=== PATIENT | male | born 1955 | race African-American/Black ===

== ENCOUNTER → 2016-11-14 | Outpatient (CLI) | payer MEDICARE, MEDICAID | LOC: OD 10:02 | PROVIDERS: ATTEND Radiology Radiation Oncology | DX: C61 Malignant neoplasm of prostate (principal); R97.20 Elevated prostate specific antigen [PSA] | CPT/HCPCS: 36415; 84153 ==

== ENCOUNTER → 2016-11-25 | Outpatient (CLI) | payer MEDICARE, MEDICAID ==
--- NOTE | 2016-11-25 14:25 | RADIOLOGY REPORT (SQ) ---
EXAM DESCRIPTION: NM WHOLE BODY BONE SCAN COMPLETED DATE/TIME: 11/25/2016 2:06 pm REASON FOR STUDY: PROSTATE CA (C61) RISING PSA (R97.21) C61 MALIGNANT NEOPLASM OF PROSTATE R97.21 RISING PSA FOL TREATMENT FOR MALIGNANT NEOPLASM OF [place] COMPARISON: No available imaging studies for comparison. RADIONUCLIDE AND DOSE: 22 millicuries Tc99m MDP. The route of agent administration: Intravenous. ADDITIONAL DRUGS AND DOSES: None. TECHNIQUE: Routine delayed images at 3 hours post radionuclide injection acquired of the bony skelet on including anterior and posterior whole-body projections and additional focused images as needed. LIMITATIONS: None. FINDINGS: BONES: There is mild increased uptake in the left 6th anterior rib, in the region of the f rontal sinus, the right 9th rib posteriorly in left 8th rib posteriorly KIDNEYS: Symmetric excretion without obstruction. OTHER: Incidental note is made of uptake in some axillary nodes on the right, the on the was injected . This probably merely relates to extravasation of a small amount of tracer at the time of injection . IMPRESSION: There are some subtle areas of abnormal uptake such that metastatic disease cannot be ru led out. The uptake in the region of frontal sinus may merely relate to sinus disease. COMMENT: PQRS 3570F: Current bone scan is compared with any available plain radiographs, prior bone scans, and CT/MRI. TECHNICAL DOCUMENTATION: JOB ID: [id number] [employer]- All Rights Reserved
== END ==
LOC: RAD 09:30
PROVIDERS: ATTEND Radiology Radiation Oncology
DX: C61 Malignant neoplasm of prostate (principal); R97.21 Rising PSA following treatment for malignant neoplasm of prostate
CPT/HCPCS: 78306; A9561; Q9969

== ENCOUNTER → 2016-11-28 | Outpatient (CLI) | payer MEDICARE, MEDICAID ==
--- NOTE | 2016-11-28 16:34 | RADIOLOGY REPORT (SQ) ---
EXAM DESCRIPTION: CT CHEST WITH COMPLETED DATE/TIME: 11/28/2016 4:01 pm REASON FOR STUDY: MAL DAVID OF PROSTATE C61 MALIGNANT NEOPLASM OF PROSTATE R97.21 RISING PSA FOL SREEDHAR ATMENT FOR MALIGNANT NEOPLASM OF [place] COMPARISON: 12/10/2013 TECHNIQUE: CT scan of the chest performed using helical scanning technique with dynamic intravenous contrast injection. Images reviewed with lung, soft tissue and bone windows. Reconstructed coronal and sagittal MPR images reviewed. All images stored on PACS. All CT scanners at this facility use dose modulation, iterative reconstruction, and/or weight based d osing when appropriate to reduce radiation dose to as low as reasonably achievable (ALARA). [facility]: Dose Right [facility]: CareDose [facility]: Dose Right [facility]: Teradose 4D [facility]: [employer] Vitamins CONTRAST TYPE AND DOSE: 55mL Isovue 370 RENAL FUNCTION: Creatinine 1.2 RADIATION DOSE: 4.52 mGy. LIMITATIONS: None. FINDINGS: LUNGS AND PLEURA: There is a 5.1 mm sub solid nodule demonstrated on image 55 of 107. Thi s is new from prior study. This is nonspecific but will need follow up. Mild emphysematous changes in the lung apices are again noted. HILAR AND MEDIASTINAL STRUCTURES: No identified masses or abnormal nodes. HEART AND VASCULAR STRUCTURES: No aneurysm or dissection. No central pulmonary emboli. No pericardi al effusion. HARDWARE: None in the chest. UPPER ABDOMEN: No significant findings. Limited exam. THYROID AND OTHER SOFT TISSUES: No masses. No adenopathy. BONES: No significant finding. OTHER: No other significant finding. IMPRESSION: 5.1 mm sub solid nodule in the right upper lobe. This is nonspecific but will need foll ow up. This is best demonstrated on axial image 55 of 107. TECHNICAL DOCUMENTATION: JOB ID: [id number] Quality ID # 436: Final reports with documentation of one or more dose reduction techniques (e.g., Au tomated exposure control, adjustment of the mA and/or kV according to patient size, use of iterative reconstruction technique) 2010 [employer]- All Rights Reserved
--- NOTE | 2016-11-28 16:37 | RADIOLOGY REPORT (SQ) ---
EXAM DESCRIPTION: CT ABD/PELVIS WITH IV ORAL COMPLETED DATE/TIME: 11/28/2016 4:01 pm REASON FOR STUDY: MAL DAVID OF PROSTATE C61 MALIGNANT NEOPLASM OF PROSTATE R97.21 RISING PSA FOL SREEDHAR ATMENT FOR MALIGNANT NEOPLASM OF [place] COMPARISON: None. TECHNIQUE: CT scan of the abdomen and pelvis performed using helical scanning technique with dynamic intravenous contrast injection. No oral contrast. Images reviewed with lung, soft tissue, and bone windows. Reconstructed coronal and sagittal MPR images reviewed. Delayed images for evaluation of the urinary system also acquired. All images stored on PACS. All CT scanners at this facility use dose modulation, iterative reconstruction, and/or weight based d osing when appropriate to reduce radiation dose to as low as reasonably achievable (ALARA). [facility]: Dose Right [facility]: CareDose [facility]: Dose Right [facility]: Teradose 4D [facility]: [employer] CONTRAST TYPE AND DOSE: 55mL Isovue 370 RENAL FUNCTION: Creatinine 1.2 RADIATION DOSE: 11.83mGy. LIMITATIONS: None. FINDINGS: LOWER CHEST: No significant findings. No nodules or infiltrates. LIVER: Normal size. No masses or dilated ducts. SPLEEN: Normal size. No focal lesions. PANCREAS: No masses. No significant calcifications. No adjacent inflammation or peripancreatic fluid collections. Pancreatic duct not dilated. GALLBLADDER: No identified stones by CT criteria. No inflammatory changes to suggest cholecystitis. ADRENAL GLANDS: No significant masses or asymmetry. RIGHT KIDNEY AND URETER: No solid masses. No significant calcifications. No hydronephrosis or hyd roureter. LEFT KIDNEY AND URETER: No solid masses. No significant calcifications. No hydronephrosis or hydr oureter. AORTA AND VESSELS: No aneurysm. No dissection. Renal arteries, SMA, celiac without stenosis. RETROPERITONEUM: No retroperitoneal adenopathy, hemorrhage or masses. BOWEL AND PERITONEAL CAVITY: No masses or inflammatory changes. No free fluid or peritoneal masses. APPENDIX: Normal. PELVIS: No mass or free fluid. Normal bladder. ABDOMINAL WALL: No masses. No hernias. BONES: No significant or acute findings. OTHER: No other significant finding. IMPRESSION: No evidence of metastatic disease in the abdomen or pelvis. TECHNICAL DOCUMENTATION: JOB ID: [id number] Quality ID # 436: Final reports with documentation of one or more dose reduction techniques (e.g., Au tomated exposure control, adjustment of the mA and/or kV according to patient size, use of iterative reconstruction technique) 2010 [facility] [employer]- All Rights Reserved
== END ==
LOC: RAD 14:26
PROVIDERS: ATTEND Radiology Radiation Oncology
DX: C61 Malignant neoplasm of prostate (principal); R97.21 Rising PSA following treatment for malignant neoplasm of prostate
CPT/HCPCS: 71260; 74177; 82565

== ENCOUNTER → 2017-03-01 | Outpatient (CLI) | payer MEDICARE, MEDICAID ==
--- NOTE | 2017-03-01 11:47 | RADIOLOGY REPORT (SQ) ---
EXAM DESCRIPTION: CT CHEST WITH COMPLETED DATE/TIME: 03/01/2017 9:18 am REASON FOR STUDY: PROSTATE CA /RISING PSA, NODULES OF RUL C61 MALIGNANT NEOPLASM OF PROSTATE COMPARISON: CT chest 12/10/2013, 11/28/2016 Bone scan 11/25/2016 TECHNIQUE: CT scan of the chest performed using helical scanning technique with dynamic intravenous contrast injection. Images reviewed with lung, soft tissue and bone windows. Reconstructed coronal and sagittal MPR images reviewed. All images stored on PACS. All CT scanners at this facility use dose modulation, iterative reconstruction, and/or weight based d osing when appropriate to reduce radiation dose to as low as reasonably achievable (ALARA). [facility]: Dose Right [facility]: CareDose [facility]: Dose Right [facility]: Teradose 4D [facility]: [employer] CONTRAST TYPE AND DOSE: contrast/concentration: Isovue 370.00 mg/ml; Total Contrast Delivered: 80.0 ml; Total Saline Delivered: 55.0 ml RENAL FUNCTION: Creatinine 1.2 RADIATION DOSE: Up-to-date CT equipment and radiation dose reduction techniques were employed. CTDIv ol: 3.9 mGy. DLP: 137 mGy-cm. . LIMITATIONS: None. FINDINGS: LUNGS AND PLEURA: No worrisome pulmonary nodules. In particular, no worrisome findings ar e present along the right lung near the minor fissure. Patient does have obstructive lung disease with enlarged airspaces particularly at the lung apices. No acute infiltrate. No worrisome pulmonary nodules. No pleural effusion. No pneumothorax. HILAR AND MEDIASTINAL STRUCTURES: No identified masses or abnormal nodes. HEART AND VASCULAR STRUCTURES: No aneurysm or dissection. No central pulmonary emboli. No pericardi al effusion. HARDWARE: None in the chest. UPPER ABDOMEN: No significant findings. Limited exam. THYROID AND OTHER SOFT TISSUES: No masses. No adenopathy. BONES: Subtle sclerotic rib lesion, anterior left 6th rib, best shown on sagittal image 52. This cor relates with findings on bone scan. There is also bony sclerosis along the right scapula worrisome f or bony metastatic lesion. OTHER: No other significant finding. IMPRESSION: No worrisome pulmonary nodules. 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
== END ==
LOC: RAD 08:31
PROVIDERS: ATTEND Radiology Radiation Oncology
DX: C61 Malignant neoplasm of prostate (principal); R97.21 Rising PSA following treatment for malignant neoplasm of prostate
CPT/HCPCS: 71260; 82565

== ENCOUNTER → 2017-11-21 | Outpatient (CLI) | payer MEDICARE, MEDICAID ==
[2017-11-21 09:39] LABS: ALANINE AMINOTRANSFERASE 17 U/L (21-72); ALBUMIN 3.5 g/dL (3.5-5.0); ALKALINE PHOSPHATASE 67 U/L (38-126); ASPARTATE AMINO TRANSFERASE 13 U/L (17-59); BILIRUBIN,DIRECT 0.3 mg/dL (0.0-0.4); BILIRUBIN,TOTAL 0.4 mg/dL (0.2-1.3); TOTAL PROTEIN 5.7 g/dL (6.3-8.2)
== END ==
LOC: OD 08:48
PROVIDERS: ATTEND Radiology Radiation Oncology
DX: C61 Malignant neoplasm of prostate (principal); R97.20 Elevated prostate specific antigen [PSA]
CPT/HCPCS: 36415; 80076; 84153

== ENCOUNTER → 2017-12-05 | Outpatient (CLI) | payer MEDICARE, MEDICAID ==
[~2017-12-05] MED LIST: BETAMET ACET/BETAMET NA INJ 6 MG/1 ML ONE; LIDOCAINE 1% INJ-PF (10 MG/ML) 30 ML SDV ONE; MAGNESIUM SULFATE 20 GM/500 ML RTUINJ IV ONE; MAGNESIUM SULFATE 8 GM/200 ML RTUPB IV ONE; MISOPROSTOL 0.2 MG TABLET ONE; OXYTOCIN 10 UNIT/ML VIAL ONE; OXYTOCIN/NORMAL SALINE 20 UNIT/1,000 ML RTUINJ ONE; PENICILLIN G-K 5 MILLION UNIT VIAL ONE
--- NOTE | 2017-12-05 09:43 | RADIOLOGY REPORT (SQ) ---
EXAM DESCRIPTION: CT CHEST WITH; CT ABD/PELVIS WITH IV ONLY COMPLETED DATE/TIME: 12/05/2017 8:58 am REASON FOR STUDY: MALIGNANT NEOPLASM OF PROSTATE C61 MALIGNANT NEOPLASM OF PROSTATE COMPARISON: Bone scan 11/25/2016 CT chest 03/01/2017, 12/10/2013 CT chest abdomen pelvis 11/28/2016 CONTRAST TYPE AND DOSE: contrast/concentration: Isovue 370.00 mg/ml; Total Contrast Delivered: 58.0 ml; Total Saline Delivered: 65.0 ml RENAL FUNCTION: Creatinine 1.2 TECHNIQUE: CT scan of the chest performed using helical scanning technique with dynamic intravenous contrast injection. Images reviewed with lung, soft tissue and bone windows. Reconstructed coronal a nd sagittal MPR images reviewed. All images stored on PACS. CT scan of the abdomen and pelvis performed with intravenous and with oral contrastusing helical scan kulwinder technique with dynamic intravenous contrast injection. Images reviewed with lung, soft tissue a nd bone windows. Reconstructed coronal and sagittal MPR images reviewed. Delayed images for evaluat ion of the urinary system also acquired and evaluated. All images stored on PACS. All CT scanners at this facility use dose modulation, iterative reconstruction, and/or weight based d osing when appropriate to reduce radiation dose to as low as reasonably achievable (ALARA). [facility]: Dose Right [facility]: CareDose [facility]: Dose Right [facility]: Teradose 4D [facility]: [employer] RADIATION DOSE: CT Rad equipment meets quality standard of care and radiation dose reduction techniq ues were employed. CTDIvol: 4.4 - 4.5 mGy. DLP: 591 mGy-cm. . LIMITATIONS: None. FINDINGS: CHEST: LUNGS AND PLEURA: Stable obstructive lung disease. No opacities, nodules, masses. No pneumothorax. No effusions. HILAR AND MEDIASTINAL STRUCTURES: No identified masses or abnormal nodes. HEART AND VASCULAR STRUCTURES: No aneurysm or dissection. No central pulmonary emboli. No pericardi al effusion. HARDWARE: None. THYROID AND OTHER SOFT TISSUES: No masses. No adenopathy. BONES: Stable sclerosis anterior left 6th rib, unchanged from CT 03/01/2017. OTHER: No other significant finding. ABDOMEN AND PELVIS: LIVER: Normal size. No masses. No dilated ducts. SPLEEN: Normal size. No focal lesions. PANCREAS: No masses. No significant calcifications. No adjacent inflammation or peripancreatic fluid collections. Pancreatic duct not dilated. GALLBLADDER: No identified stones by CT criteria. No inflammatory changes to suggest cholecystitis. ADRENAL GLANDS: No significant masses or asymmetry. RIGHT KIDNEY AND URETER: No solid masses. No significant calcification. No hydronephrosis or hydroure ter. LEFT KIDNEY AND URETER: No solid masses. No significant calcification. No hydronephrosis or hydrouret er. AORTA AND VESSELS: No aneurysm. No dissection. Renal arteries, SMA, celiac without stenosis. RETROPERITONEUM: No retroperitoneal adenopathy, hemorrhage or masses. BOWEL AND PERITONEAL CAVITY: No masses or inflammatory changes. No free fluid or peritoneal masses. APPENDIX: Normal. ABDOMINAL WALL: No masses. No hernias. PELVIS: No mass or free fluid. Normal bladder. BONES: No significant or acute findings. OTHER: No other significant finding. IMPRESSION: Small stable sclerotic focus anterior left 6th rib. Stable obstructive lung disease. Unremarkable CT the abdomen pelvis with IV contrast TECHNICAL DOCUMENTATION: JOB ID: [id number] Quality ID # 436: Final reports with documentation of one or more dose reduction techniques (e.g., Au tomated exposure control, adjustment of the mA and/or kV according to patient size, use of iterative reconstruction technique) 2010 [employer]- All Rights Reserved Reading location - IP/workstation name: [facility], [facility]
--- NOTE | 2017-12-05 15:51 | RADIOLOGY REPORT (SQ) ---
EXAM DESCRIPTION: NM WHOLE BODY BONE SCAN COMPLETED DATE/TIME: 12/05/2017 12:17 pm REASON FOR STUDY: MALIGNANT NEOPLASM OF PROSTATE C61 MALIGNANT NEOPLASM OF PROSTATE COMPARISON: Bone scan 11/25/2016 CT chest abdomen pelvis 12/05/2017, 11/28/2016 RADIONUCLIDE AND DOSE: 20.2 millicuries Tc99m MDP. The route of agent administration: Intravenous. ADDITIONAL DRUGS AND DOSES: None. TECHNIQUE: Routine delayed images at 3 hours post radionuclide injection acquired of the bony skelet on including anterior and posterior whole-body projections and additional focused images as needed. LIMITATIONS: None. FINDINGS: BONES: Subtle increased uptake anterior left 6th rib correlates with bony sclerosis on CT exams 12/05/2017, 11/28/2016. Remainder of the bony uptake is otherwise unremarkable. KIDNEYS: Symmetric excretion without obstruction. OTHER: No other significant finding. IMPRESSION: Stable subtle mild increased uptake anterior left 6th rib correlates with bony sclerosis on CT exams. COMMENT: Quality measure 147: Current bone scan is compared with any available plain radiographs, p rior bone scans, and CT/MRI. TECHNICAL DOCUMENTATION: JOB ID: [id number] [employer]- All Rights Reserved Reading location - IP/workstation name: [email or web address]
== END ==
LOC: RAD 08:07
PROVIDERS: ATTEND Internal Medicine
DX: C61 Malignant neoplasm of prostate (principal); J44.9 Chronic obstructive pulmonary disease, unspecified
CPT/HCPCS: 78306; 71260; 74177; A9561; Q9969

== ENCOUNTER 2018-01-23 07:07 | Inpatient (IN) | payer MEDICARE, MEDICAID ==
--- NOTE | 2018-01-23 07:23 | ER Document Report ---
ED Psych Disorder / Suicide - General Stated Complaint: ELIECER EVAL Time Seen by Provider: 01/23/18 07:22 Mode of Arrival: Ambulatory Information source: Patient Notes: 62 yo male brought in by EMS because brother (diaz that he lives with) was worried about him talking to their mom last pm and seeing/feeling bugs crawl on him and the movement alteration that he developed this morning. Not taken his cogentin for awhile. Hx DM, HTN, schizophrenia. TRAVEL OUTSIDE OF THE [place] IN LAST 30 DAYS: No - Related Data Allergies/Adverse Reactions: No Known Allergies Allergy (Verified 06/10/14 15:33) Past Medical History - General Information source: Patient, Relative - brother - Social History Smoking Status: Unknown if Ever Smoked Frequency of alcohol use: None Drug Abuse: None Lives with: Family - brother Family History: Reviewed & Not Pertinent - Past Medical History Cardiac Medical History: Reports: Hx Hypertension Endocrine Medical History: Reports: Hx Diabetes Mellitus Type 2 Malignancy Medical History: Reports Hx Prostate Cancer Psychiatric Medical History: Reports: Hx Depression, Hx Schizophrenia Past Surgical History: Denies: Hx Pacemaker Review of Systems - Review of Systems Constitutional: No symptoms reported EENT: No symptoms reported Cardiovascular: No symptoms reported Respiratory: No symptoms reported Gastrointestinal: No symptoms reported Genitourinary: No symptoms reported Male Genitourinary: No symptoms reported Musculoskeletal: See HPI Skin: No symptoms reported Hematologic/Lymphatic: No symptoms reported Neurological/Psychological: See HPI Physical Exam - Vital signs Vitals: Temp Pulse Resp BP Pulse Ox 97.8 F 105 H 22 H 159/102 H 94 01/23/18 07:24 01/23/18 07:24 01/23/18 07:24 01/23/18 07:24 01/23/18 07:24 Interpretation: Normal - General General appearance: Appears well, Alert - HEENT Head: Normocephalic, Atraumatic Eyes: Normal Conjunctiva: Normal Pupils: PERRL Pharynx: Normal Neck: Supple - Respiratory Respiratory status: No respiratory distress Chest status: Nontender Breath sounds: Normal Chest palpation: Normal - Cardiovascular Rhythm: Regular Heart sounds: Normal auscultation Murmur: No - Abdominal Inspection: Normal Distension: No distension Bowel sounds: Normal Tenderness: Nontender Organomegaly: No organomegaly - Back Back: Normal, Nontender - Extremities General upper extremity: Normal inspection, Nontender, Normal color, Normal ROM , Normal temperature General lower extremity: Normal inspection, Nontender, Normal color, Normal ROM , Normal temperature, Normal weight bearing. No: Jessica's sign - Neurological Neuro grossly intact: Yes Cognition: Normal Strat[place] Coma Scale Eye Opening: Spontaneous Pawan Coma Scale Motor: Obeys Commands Speech: Dysarthria Motor strength normal: LUE, RUE, LLE, RLE Sensory: Normal Notes: dystonic type head, tongue arm movements - Psychological Associated symptoms: Normal affect, Normal mood - Skin Skin Temperature: Warm Skin Moisture: Dry Skin Color: Normal Skin irregularity: negative: Rash Course - Re-evaluation Re-evalutation: 01/23/18 07:41 Phone number was left on his paperwork that is his brother who apparently called EMS and I called the number [phone] there is no voicemail set up and no one answered. 01/23/18 07:50 spoke with Diaz Hutchison [phone] (cell phone) yesterday started talking out of his head at 1200- crazy stuff, talking to his mom, bugs crawling on him. mental health appt on February 15. benztropine out of it for about a week - maybe longer than that. Meds filled [facility] piggly wiggly. movement disorder started this morning so he called EMS. 01/23/18 09:33 Patient CPK is 1478 and his creatinine is 2.79 and BUN is 59, I spoke with Dr. Ramirez who is willing to admit him for acute kidney injury, rhabdomyolysis, movement disorder, to [facility]. - Vital Signs Vital signs: Temp Pulse Resp BP Pulse Ox 98.4 F 114 H 18 124/91 H 96 01/23/18 19:40 01/23/18 19:40 01/23/18 19:40 01/23/18 19:40 01/23/18 19:40 - Laboratory Result Diagrams: 01/23/18 07:30 01/23/18 07:30 Laboratory results interpreted by me: 01/23/18 01/23/18 01/23/18 07:30 07:30 07:30 WBC 10.6 H RBC 3.28 L Hgb 10.2 L Hct 29.1 L RDW 15.4 H BUN 59 H Creatinine 2.79 H Est GFR ( Amer) 28 L Est GFR (Non-Af Amer) 23 L Creatine Kinase 1476 H Urine Ketones Urine Blood Urine Urobilinogen Salicylates < 1.0 L Acetaminophen < 10 L 01/23/18 08:10 WBC RBC Hgb Hct RDW BUN Creatinine Est GFR ( Amer) Est GFR (Non-Af Amer) Creatine Kinase Urine Ketones TRACE H Urine Blood MODERATE H Urine Urobilinogen 2.0 H Salicylates Acetaminophen Discharge - Discharge Clinical Impression: Movement disorder, Acute kidney injury Schizophrenia Qualifiers: Schizophrenia type: other Qualified Code(s): F20.89 - Other schizophrenia Condition: Stable Disposition: ADMITTED INPATIENT Admitting Provider: Anafl Unit Admitted: [facility]
[2018-01-23] MEDS ORDERED: DIPHENHYDRAMINE HCL 50 MG/ML VIAL IV ONE ×2 (07:40→08:07)
[2018-01-23 07:41] LABS: ABSOLUTE BASOPHILS # (AUTO) 0.1 10^3/uL (0.0-0.2); ABSOLUTE EOSINOPHILS # (AUTO) 0.1 10^3/uL (0.0-0.6); ABSOLUTE LYMPHOCYTES (AUTO) 2.5 10^3/uL (0.5-4.7); ABSOLUTE MONOCYTES (AUTO) 0.7 10^3/uL (0.1-1.4); ABSOLUTE NEUT (AUTO) 7.1 10^3/uL (1.7-8.2); BASOPHILS % (AUTO) 0.5 % (0-2); EOSINOPHILS % (AUTO) 1.4 % (0-6); HEMATOCRIT 29.1 % (37.9-51.0); HEMOGLOBIN 10.2 g/dL (13.5-17.0); LYMPHOCYTES % (AUTO) 24.1 % (13-45); MEAN CORPUSCULAR HEMOGLOBIN 31.1 pg (27.0-33.4); MEAN CORPUSCULAR VOLUME 89 fl (80-97); MONOCYTES % (AUTO) 6.5 % (3-13); PLATELET COUNT 282 10^3/uL (150-450); RED BLOOD COUNT 3.28 10^6/uL (4.35-5.55); RED CELL DISTRIBUTION WIDTH 15.4 % (11.5-14.0); SEGMENTED NEUTROPHILS % (AUTO) 67.5 % (42-78); TOTAL CELLS COUNTED % (AUTO) 100 %; WHITE BLOOD COUNT 10.6 10^3/uL (4.0-10.5)
[2018-01-23 08:10] LABS: ALANINE AMINOTRANSFERASE 33 U/L (21-72); ALBUMIN 4.6 g/dL (3.5-5.0); ALKALINE PHOSPHATASE 81 U/L (38-126); ASPARTATE AMINO TRANSFERASE 54 U/L (17-59); BILIRUBIN,DIRECT 0.3 mg/dL (0.0-0.4); BILIRUBIN,TOTAL 0.6 mg/dL (0.2-1.3); BLOOD UREA NITROGEN 59 mg/dL (7-20); CALCIUM 9.7 mg/dL (8.4-10.2); GLUCOSE 106 mg/dL (75-110); POTASSIUM 3.8 mmol/L (3.6-5.0); TOTAL PROTEIN 7.6 g/dL (6.3-8.2)
[2018-01-23 08:11] LABS: ACETAMINOPHEN < 10 ug/mL (10-30); ALCOHOL < 10 mg/dL (NONE DETECTED); SALICYLATE < 1.0 mg/dL (2.0-20.0)
[2018-01-23 08:14] LABS: ANION GAP 19 (5-19); CARBON DIOXIDE 24 mmol/L (22-30); CHLORIDE 99 mmol/L (98-107); SODIUM 141.9 mmol/L (137-145)
[2018-01-23] MEDS ORDERED: NORMAL SALINE 1000 ML 500 ML IV ONE (08:40)
[2018-01-23 08:41] LABS: APPEARANCE,URINE SLIGHTLY-CLOUDY; BILIRUBIN,URINE NEGATIVE (NEGATIVE); COLOR,URINE YELLOW; GLUCOSE, URINE NEGATIVE (NEGATIVE); KETONES,URINE TRACE mg/dL (NEGATIVE); LEUKOCYTE ESTERASE,URINE NEGATIVE (NEGATIVE); NITRITE,URINE NEGATIVE (NEGATIVE); PROTEIN,URINE NEGATIVE (NEGATIVE); URINE SPECIFIC GRAVITY 1.017
[2018-01-23] MEDS ORDERED: BENZTROPINE MESYLATE 1 MG TABLET PO ONE (08:42)
[2018-01-23] MEDS ORDERED: NORMAL SALINE 1000 ML 1,000 ML IV ONE ×2 (08:47→09:35)
[2018-01-23 08:55] LABS: URINE AMPHETAMINES SCREEN NEGATIVE; URINE BARBITURATES SCREEN NEGATIVE; URINE BENZODIAZEPINES SCREEN NEGATIVE; URINE COCAINE SCREEN NEGATIVE; URINE MARIJUANA (THC) SCREEN NEGATIVE; URINE METHADONE SCREEN NEGATIVE; URINE PHENCYCLIDINE SCREEN NEGATIVE
--- NOTE | 2018-01-23 09:27 | EKG REPORT ---
SEVERITY:- NORMAL ECG - SINUS RHYTHM : Confirmed by: Dhara Sandoval 23-Jan-2018 09:27:14
[2018-01-23] MEDS ORDERED: NITROGLYCERIN/D5W 50 MG/250 ML RTUINJ IV PRN (12:05)
[2018-01-23] MEDS ORDERED: GLUCAGON,HUMAN RECOMB 1 MG INJ IM PRN (12:06)
[2018-01-23] MEDS ORDERED: INSULIN REG, HUMAN 100 UNIT/ML 3 ML VIAL (PYX) SUBCUT PRN (12:06)
[2018-01-23] MEDS ORDERED: DEXTROSE 40% GEL 15 GM TUBE PO PRN ×2 (12:06)
[2018-01-23] MEDS ORDERED: DEXTROSE 50%-WATER 25 GM/50 ML DISP.SYRIN IV PRN ×2 (12:06)
[2018-01-23] MEDS: AMLODIPINE BESYLATE 10 MG TABLET PO SCH (13:00)
[2018-01-23] MEDS: CLONIDINE HCL 0.2 MG TABLET PO SCH ×2 (13:01→21:31)
[2018-01-23] MEDS: HYDRALAZINE HCL 50 MG TABLET PO SCH ×2 (13:01→21:31)
[2018-01-23] MEDS: HEPARIN SOD (PORCINE) 5,000 UNIT/ML 1 ML SYRINGE SUBCUT SCH ×2 (13:04→21:31)
[2018-01-23 13:34] LABS: INTERNATIONAL RATION (INR) 1.06; PARTIAL THROMBOPLASTIN TIME 33.4 SEC (23.5-35.8); PROTHROMBIN TIME 14.3 SEC (11.4-15.4)
[2018-01-23 13:46] LABS: LIPASE 57.3 U/L (23-300)
[2018-01-23 14:00] LABS: CREATINE KINASE MB 8.18 ng/mL (<4.55); TROPONIN I 0.02 ng/mL
[2018-01-23 14:03] LABS: FREE T4 (FREE THYROXINE) 1.56 ng/dL (0.78-2.19)
[2018-01-23 14:17] LABS: THYROID STIMULATING HORMONE 0.74 uIU/mL (0.47-4.68)
[2018-01-23] MEDS ORDERED: MAGNESIUM SULFATE INJ 8 MEQ/2 ML IV ONE (15:00)
[2018-01-23] MEDS: MAGNESIUM SULFATE 1 GM/D5W 100 ML IV SCH ×2 (15:34→16:49)
[2018-01-23 19:23] LABS: CREATINE KINASE MB 7.18 ng/mL (<4.55); TROPONIN I 0.012 ng/mL
[2018-01-23] MEDS: NORMAL SALINE 1000 ML 1,000 ML IV PRN (20:19)
--- NOTE | 2018-01-23 21:36 | PDOC H&P ---
History of Present Illness Admission Date/PCP: 01/23/18 09:37 DAYANARA MORRIS MD History of Present Illness: ROSCOE MARINO is a 62 year old male, He has a history of schizophrenia, type 2 diabetes mellitus, he was transferred to the emergency room by EMS for evaluation of acute psychosis, he was hallucinating, talking to people, increased agitation with parkinsonian type movement. He was evaluated in the emergency room, the blood work revealed serum creatinine 2.79, CPK was elevated the blood pressure recorded was over 200 systolic. The serum creatinine that was done in the office on 01/01/2018 was 1.26 so clearly there is acute kidney injury in the setting of hypertensive emergency. It seems that patient's psychotropic drugs has not been filled, he has not seen the psychiatrist, he has appointment for follow-up in January next month. I could not obtain any meaningful history from this patient. Past Medical History Cardiac Medical History: Reports: Hypertension Endocrine Medical History: Reports: Diabetes Mellitus Type 2 Psychiatric Medical History: Reports: Depression Past Surgical History Past Surgical History: Denies: Pacemaker Social History Smoking Status: Current Every Day Smoker Frequency of Alcohol Use: None Hx Recreational Drug Use: No Hx Prescription Drug Abuse: No Family History Family History: Reviewed & Not Pertinent Parental Family History Reviewed: Yes Children Family History Reviewed: Yes Sibling(s) Family History Reviewed.: Yes Medication/Allergy Home Medications: Clonidine HCl 0.2 mg PO Q8 03/12/12 Hydralazine HCl [Apresoline 50 Mg Tablet] 50 mg PO Q8 03/12/12 Metformin HCl [Glucophage 500 Mg Tablet] 1,000 mg PO BIDBS 09/01/12 Amlodipine Besylate [Norvasc 10 mg Tablet] 10 mg PO DAILY 01/23/18 Aspirin [Aspirin EC] 81 mg PO DAILY 01/23/18 Glipizide [Glocotrol 5 Mg Tablet] 5 mg PO DAILY 01/23/18 Losartan/Hydrochlorothiazide [Hyzaar 100-12.5 Tablet] 1 tab PO DAILY 01/23/18 Allergies/Adverse Reactions: No Known Allergies Allergy (Verified 06/10/14 15:33) Review of Systems ROS unobtainable: Due to mental status Physical Exam Vital Signs: Temp Pulse Resp BP Pulse Ox 98.4 F 114 H 18 124/91 H 96 01/23/18 19:40 01/23/18 19:40 01/23/18 19:40 01/23/18 19:40 01/23/18 19:40 Intake & Output 01/22/18 01/23/18 01/24/18 06:59 06:59 06:59 Intake Total 1400 Balance 1400 Weight 49.2 kg General appearance: PRESENT: other - Alert excessive twitching Head exam: PRESENT: atraumatic, normocephalic Eye exam: PRESENT: PERRLA Neck exam: PRESENT: full ROM Respiratory exam: PRESENT: clear to auscultation eriberto Cardiovascular exam: PRESENT: RRR, +S1, +S2 Vascular exam: PRESENT: normal capillary refill GI/Abdominal exam: PRESENT: normal bowel sounds, soft Rectal exam: PRESENT: deferred Neurological exam: PRESENT: alert, awake, oriented to person, oriented to place , oriented to time, oriented to situation, CN II-XII grossly intact Psychiatric exam: PRESENT: appropriate affect, normal mood Skin exam: PRESENT: dry, intact, warm Results Laboratory Results: 01/23/18 01/23/18 13:10 13:10 Magnesium 1.1 L* Amylase 59 Lipase 57.3 TSH 0.74 Free T4 1.56 01/23/18 01/23/18 01/23/18 13:10 13:10 13:10 Creatine Kinase 1571 H CK-MB (CK-2) 8.18 H Troponin I 0.020 NT-Pro-B Natriuret Pep 54 01/23/18 01/23/18 18:30 18:30 Creatine Kinase 1560 H CK-MB (CK-2) 7.18 H Troponin I 0.012 NT-Pro-B Natriuret Pep Assessment & Plan - Diagnosis (1) Hypertensive emergency Is this a current diagnosis for this admission?: Yes (2) Acute kidney injury Is this a current diagnosis for this admission?: Yes Plan: The differential diagnoses include prerenal acute kidney injury, intrinsic kidney disease, post renal causes, it is most likely related to prerenal acute kidney injury from uncontrolled hypertension and dehydration (3) Rhabdomyolysis Qualifiers: Rhabdomyolysis type: non-traumatic Qualified Code(s): M62.82 - Rhabdomyolysis Is this a current diagnosis for this admission?: Yes Plan: CPK is elevated, urine myoglobin is ordered
[2018-01-23 21:39] LABS: APPEARANCE,URINE CLEAR; BILIRUBIN,URINE NEGATIVE (NEGATIVE); COLOR,URINE STRAW; GLUCOSE, URINE >=500 mg/dL (NEGATIVE); KETONES,URINE NEGATIVE (NEGATIVE); LEUKOCYTE ESTERASE,URINE NEGATIVE (NEGATIVE); NITRITE,URINE NEGATIVE (NEGATIVE); PROTEIN,URINE NEGATIVE (NEGATIVE); URINE SPECIFIC GRAVITY 1.008; UROBILINOGEN,URINE NEGATIVE mg/dL (<2.0)
[2018-01-23 21:46] LABS: URINE AMPHETAMINES SCREEN NEGATIVE; URINE BARBITURATES SCREEN NEGATIVE; URINE BENZODIAZEPINES SCREEN NEGATIVE; URINE COCAINE SCREEN NEGATIVE; URINE MARIJUANA (THC) SCREEN NEGATIVE; URINE METHADONE SCREEN NEGATIVE; URINE PHENCYCLIDINE SCREEN NEGATIVE
--- NOTE | 2018-01-23 21:55 | RADIOLOGY REPORT (SQ) ---
EXAM DESCRIPTION: U/S RETROPERITON (RENAL/AORTA) COMPLETED DATE/TIME: 01/23/2018 8:44 pm REASON FOR STUDY: acute kidney injury COMPARISON: None. TECHNIQUE: Dynamic and static grayscale images acquired of the kidneys and bladder and recorded on P ACS. Additional selected color Doppler and spectral images recorded. LIMITATIONS: Study limited by body movement. FINDINGS: RIGHT KIDNEY: Normal size, 9.5 cm. Normal echogenicity. No solid or suspicious masses. No hydronephrosis. No calcifications. LEFT KIDNEY: Not well seen. BLADDER: Ureteral jets are not seen. No bladder mass. OTHER FINDINGS: No other significant finding. IMPRESSION: Normal but limited study. The left kidney was not well seen. TECHNICAL DOCUMENTATION: JOB ID: [id number] [employer]- All Rights Reserved Reading location - IP/workstation name: [email or web address]
[2018-01-24 01:01] LABS: CREATINE KINASE MB 7.49 ng/mL (<4.55); TROPONIN I 0.018 ng/mL
[2018-01-24] MEDS ORDERED: LORAZEPAM INJ 2 MG/1 ML VIAL ONE (03:10)
[2018-01-24] MEDS ORDERED: LORAZEPAM INJ 2 MG/1 ML VIAL IV ONE (03:15)
[2018-01-24] MEDS: NORMAL SALINE 1000 ML 1,000 ML IV PRN ×3 (04:14→21:17)
[2018-01-24] MEDS: CLONIDINE HCL 0.2 MG TABLET PO SCH ×3 (06:05→21:18)
[2018-01-24] MEDS: HEPARIN SOD (PORCINE) 5,000 UNIT/ML 1 ML SYRINGE SUBCUT SCH ×3 (06:06→21:18)
[2018-01-24] MEDS: HYDRALAZINE HCL 50 MG TABLET PO SCH ×3 (06:06→21:18)
[2018-01-24 06:31] LABS: ABSOLUTE BASOPHILS # (AUTO) 0.1 10^3/uL (0.0-0.2); ABSOLUTE EOSINOPHILS # (AUTO) 0.1 10^3/uL (0.0-0.6); ABSOLUTE LYMPHOCYTES (AUTO) 1.8 10^3/uL (0.5-4.7); ABSOLUTE MONOCYTES (AUTO) 0.5 10^3/uL (0.1-1.4); ABSOLUTE NEUT (AUTO) 5.3 10^3/uL (1.7-8.2); BASOPHILS % (AUTO) 0.8 % (0-2); EOSINOPHILS % (AUTO) 1.4 % (0-6); HEMATOCRIT 25.5 % (37.9-51.0); HEMOGLOBIN 8.8 g/dL (13.5-17.0); LYMPHOCYTES % (AUTO) 23.2 % (13-45); MEAN CORPUSCULAR HEMOGLOBIN 30.9 pg (27.0-33.4); MEAN CORPUSCULAR HGB CONC 34.5 g/dL (32.0-36.0); MEAN CORPUSCULAR VOLUME 90 fl (80-97); MONOCYTES % (AUTO) 6.3 % (3-13); PLATELET COUNT 210 10^3/uL (150-450); RED BLOOD COUNT 2.85 10^6/uL (4.35-5.55); RED CELL DISTRIBUTION WIDTH 15.1 % (11.5-14.0); SEGMENTED NEUTROPHILS % (AUTO) 68.3 % (42-78); TOTAL CELLS COUNTED % (AUTO) 100 %; WHITE BLOOD COUNT 7.8 10^3/uL (4.0-10.5)
[2018-01-24 06:45] LABS: ANION GAP 11 (5-19); BLOOD UREA NITROGEN 42 mg/dL (7-20); CALCIUM 9.5 mg/dL (8.4-10.2); CARBON DIOXIDE 23 mmol/L (22-30); CHLORIDE 109 mmol/L (98-107); GLUCOSE 98 mg/dL (75-110); POTASSIUM 4.4 mmol/L (3.6-5.0); SODIUM 142.9 mmol/L (137-145)
[2018-01-24] MEDS: AMLODIPINE BESYLATE 10 MG TABLET PO SCH (10:03)
--- NOTE | 2018-01-24 16:06 | PDOC PROGRESS REPORT ---
Subjective Progress Note for:: 01/24/18 Subjective:: Patient was seen by the bedside, I spoke to the retail pharmacist regarding his psychotropic drugs, he apparently has not filled the prescription for a while, he is supposed to be on Prolixin and Cogentin. The kidney function is improved with hydration Reason For Visit: HYPERTENSIVE EMERGENCY,ACUTE KIDNEY INJURY, Physical Exam Vital Signs: Temp Pulse Resp BP Pulse Ox 98.1 F 86 18 131/55 H 100 01/24/18 12:06 01/24/18 14:00 01/24/18 12:06 01/24/18 12:06 01/24/18 12:06 Intake & Output 01/23/18 01/24/18 01/25/18 06:59 06:59 06:59 Intake Total 4079 1500 Output Total 800 600 Balance 3279 900 Weight 50.3 kg General appearance: PRESENT: no acute distress Eye exam: PRESENT: PERRLA Respiratory exam: PRESENT: clear to auscultation eriberto Cardiovascular exam: PRESENT: +S1, +S2 GI/Abdominal exam: PRESENT: soft Neurological exam: PRESENT: alert Results Laboratory Results: 01/24/18 06:04 01/24/18 06:04 01/23/18 01/24/18 01/24/18 21:20 06:04 06:04 WBC 7.8 RBC 2.85 L Hgb 8.8 L Hct 25.5 L MCV 90 MCH 30.9 MCHC 34.5 RDW 15.1 H Plt Count 210 Seg Neutrophils % 68.3 Lymphocytes % 23.2 Monocytes % 6.3 Eosinophils % 1.4 Basophils % 0.8 Absolute Neutrophils 5.3 Absolute Lymphocytes 1.8 Absolute Monocytes 0.5 Absolute Eosinophils 0.1 Absolute Basophils 0.1 Sodium 142.9 Potassium 4.4 Chloride 109 H Carbon Dioxide 23 Anion Gap 11 BUN 42 H Creatinine 1.36 H Est GFR ( Amer) > 60 Est GFR (Non-Af Amer) 53 L Glucose 98 Calcium 9.5 Magnesium 1.7 Urine Color STRAW Urine Appearance CLEAR Urine pH 6.0 Ur Specific [place] 1.008 Urine Protein NEGATIVE Urine Glucose (UA) >=500 H Urine Ketones NEGATIVE Urine Blood NEGATIVE Urine Nitrite NEGATIVE Ur Leukocyte Esterase NEGATIVE Urine WBC (Auto) 0 Urine RBC (Auto) 0 01/23/18 01/23/18 01/23/18 13:10 13:10 13:10 Creatine Kinase 1571 H CK-MB (CK-2) 8.18 H Troponin I 0.020 NT-Pro-B Natriuret Pep 54 01/23/18 01/23/18 01/24/18 18:30 18:30 00:25 Creatine Kinase 1560 H 1597 H CK-MB (CK-2) 7.18 H Troponin I 0.012 NT-Pro-B Natriuret Pep 01/24/18 00:25 Creatine Kinase CK-MB (CK-2) 7.49 H Troponin I 0.018 NT-Pro-B Natriuret Pep Impressions: Renal Ultrasound 01/23/18 00:00 IMPRESSION: Normal but limited study. The left kidney was not well seen. Assessment & Plan - Diagnosis (1) Hypertensive emergency Is this a current diagnosis for this admission?: Yes (2) Acute kidney injury Is this a current diagnosis for this admission?: Yes (3) Rhabdomyolysis Qualifiers: Rhabdomyolysis type: non-traumatic Qualified Code(s): M62.82 - Rhabdomyolysis Is this a current diagnosis for this admission?: Yes (4) Schizophrenia Qualifiers: Schizophrenia type: unspecified Qualified Code(s): F20.9 - Schizophrenia, unspecified Is this a current diagnosis for this admission?: Yes Plan: Start Prolixin, 5 mg p.o. twice daily, Cogentin
[2018-01-24] MEDS: BENZTROPINE MESYLATE 1 MG TABLET PO SCH (18:06)
[2018-01-24] MEDS: FLUPHENAZINE HCL 2.5 MG TABLET PO SCH (18:06)
[2018-01-25 01:45] LABS: ABSOLUTE EOSINOPHILS # (AUTO) 0.1 10^3/uL (0.0-0.6); ABSOLUTE LYMPHOCYTES (AUTO) 2.4 10^3/uL (0.5-4.7); ABSOLUTE MONOCYTES (AUTO) 0.3 10^3/uL (0.1-1.4); ABSOLUTE NEUT (AUTO) 2.7 10^3/uL (1.7-8.2); BASOPHILS % (AUTO) 0.8 % (0-2); EOSINOPHILS % (AUTO) 2.5 % (0-6); HEMATOCRIT 24.2 % (37.9-51.0); HEMOGLOBIN 8.3 g/dL (13.5-17.0); LYMPHOCYTES % (AUTO) 42.8 % (13-45); MEAN CORPUSCULAR HEMOGLOBIN 30.4 pg (27.0-33.4); MEAN CORPUSCULAR VOLUME 89 fl (80-97); MONOCYTES % (AUTO) 4.9 % (3-13); PLATELET COUNT 195 10^3/uL (150-450); RED BLOOD COUNT 2.71 10^6/uL (4.35-5.55); RED CELL DISTRIBUTION WIDTH 15.1 % (11.5-14.0); TOTAL CELLS COUNTED % (AUTO) 100 %; WHITE BLOOD COUNT 5.6 10^3/uL (4.0-10.5)
[2018-01-25 01:58] LABS: ANION GAP 7 (5-19); BLOOD UREA NITROGEN 27 mg/dL (7-20); CALCIUM 9.3 mg/dL (8.4-10.2); CARBON DIOXIDE 24 mmol/L (22-30); CHLORIDE 111 mmol/L (98-107); GLUCOSE 122 mg/dL (75-110); SODIUM 141.9 mmol/L (137-145)
[2018-01-25 02:10] LABS: CREATINE KINASE MB 4.12 ng/mL (<4.55); TROPONIN I < 0.012 ng/mL
[2018-01-25] MEDS: BENZTROPINE MESYLATE 1 MG TABLET PO SCH ×2 (06:01→18:06)
[2018-01-25] MEDS: CLONIDINE HCL 0.2 MG TABLET PO SCH ×3 (06:03→23:08)
[2018-01-25] MEDS: HYDRALAZINE HCL 50 MG TABLET PO SCH ×3 (06:03→23:09)
[2018-01-25] MEDS: HEPARIN SOD (PORCINE) 5,000 UNIT/ML 1 ML SYRINGE SUBCUT SCH ×3 (06:06→23:09)
[2018-01-25] MEDS: NORMAL SALINE 1000 ML 1,000 ML IV PRN ×2 (06:50→18:11)
[2018-01-25 09:10] LABS: HEMATOCRIT 26.9 % (37.9-51.0); HEMOGLOBIN 9.1 g/dL (13.5-17.0); MEAN CORPUSCULAR HEMOGLOBIN 30.7 pg (27.0-33.4); MEAN CORPUSCULAR VOLUME 90 fl (80-97); PLATELET COUNT 231 10^3/uL (150-450); RED BLOOD COUNT 2.97 10^6/uL (4.35-5.55); RED CELL DISTRIBUTION WIDTH 15.1 % (11.5-14.0); WHITE BLOOD COUNT 6.8 10^3/uL (4.0-10.5)
--- NOTE | 2018-01-25 09:24 | EKG REPORT ---
SEVERITY:- NORMAL ECG - SINUS RHYTHM : Confirmed by: Dhara Sandoval 25-Jan-2018 09:24:05
[2018-01-25 09:42] LABS: ANION GAP 10 (5-19); BLOOD UREA NITROGEN 19 mg/dL (7-20); CALCIUM 9.8 mg/dL (8.4-10.2); CARBON DIOXIDE 23 mmol/L (22-30); CHLORIDE 108 mmol/L (98-107); CREATINE KINASE 924 U/L (55-170); GLUCOSE 151 mg/dL (75-110); POTASSIUM 4.3 mmol/L (3.6-5.0); SODIUM 140.8 mmol/L (137-145)
[2018-01-25] MEDS: FLUPHENAZINE HCL 2.5 MG TABLET PO SCH ×2 (09:42→18:06)
[2018-01-25] MEDS: AMLODIPINE BESYLATE 10 MG TABLET PO SCH (09:43)
[2018-01-25 09:52] LABS: CREATINE KINASE MB 4.08 ng/mL (<4.55)
[2018-01-25 09:56] LABS: TROPONIN I < 0.012 ng/mL
[2018-01-25 16:47] LABS: CREATINE KINASE MB 3.09 ng/mL (<4.55)
[2018-01-25 16:52] LABS: TROPONIN I < 0.012 ng/mL
--- NOTE | 2018-01-25 20:33 | PDOC PROGRESS REPORT ---
Subjective Progress Note for:: 01/25/18 Subjective:: Patient was seen by the bedside, He continues to improve with hydration Reason For Visit: HYPERTENSIVE EMERGENCY,ACUTE KIDNEY INJURY, Physical Exam Vital Signs: Temp Pulse Resp BP Pulse Ox 98.2 F 86 19 166/98 H 98 01/25/18 15:43 01/25/18 19:00 01/25/18 15:43 01/25/18 15:43 01/25/18 15:43 Intake & Output 01/24/18 01/25/18 01/26/18 06:59 06:59 06:59 Intake Total 4079 5421 1836 Output Total 800 1650 500 Balance 3279 3771 1336 Weight 50.3 kg 52.8 kg General appearance: PRESENT: no acute distress Eye exam: PRESENT: PERRLA Respiratory exam: PRESENT: clear to auscultation eriberto Cardiovascular exam: PRESENT: +S1, +S2 GI/Abdominal exam: PRESENT: soft Neurological exam: PRESENT: alert Results Laboratory Results: 01/25/18 08:52 01/25/18 08:52 01/25/18 01/25/18 01/25/18 01:35 01:35 01:35 WBC 5.6 RBC 2.71 L Hgb 8.3 L Hct 24.2 L MCV 89 MCH 30.4 MCHC 34.0 RDW 15.1 H Plt Count 195 Seg Neutrophils % 49.0 Lymphocytes % 42.8 Monocytes % 4.9 Eosinophils % 2.5 Basophils % 0.8 Absolute Neutrophils 2.7 Absolute Lymphocytes 2.4 Absolute Monocytes 0.3 Absolute Eosinophils 0.1 Absolute Basophils 0.0 Sodium 141.9 Potassium 4.0 Chloride 111 H Carbon Dioxide 24 Anion Gap 7 BUN 27 H Creatinine 1.03 Est GFR ( Amer) > 60 Est GFR (Non-Af Amer) > 60 Glucose 122 H Calcium 9.3 Magnesium 1.5 L 01/25/18 01/25/18 08:52 08:52 WBC 6.8 RBC 2.97 L Hgb 9.1 L Hct 26.9 L MCV 90 MCH 30.7 MCHC 34.0 RDW 15.1 H Plt Count 231 Seg Neutrophils % Lymphocytes % Monocytes % Eosinophils % Basophils % Absolute Neutrophils Absolute Lymphocytes Absolute Monocytes Absolute Eosinophils Absolute Basophils Sodium 140.8 Potassium 4.3 Chloride 108 H Carbon Dioxide 23 Anion Gap 10 BUN 19 Creatinine 0.88 Est GFR ( Amer) > 60 Est GFR (Non-Af Amer) > 60 Glucose 151 H Calcium 9.8 Magnesium 1.3 L 01/23/18 21:20 Clean Catch Midstream Urine Culture - Final NO GROWTH 2 DAYS 01/23/18 01/23/18 01/23/18 13:10 13:10 13:10 Creatine Kinase 1571 H CK-MB (CK-2) 8.18 H Troponin I 0.020 NT-Pro-B Natriuret Pep 54 01/23/18 01/23/18 01/24/18 18:30 18:30 00:25 Creatine Kinase 1560 H 1597 H CK-MB (CK-2) 7.18 H Troponin I 0.012 NT-Pro-B Natriuret Pep 01/24/18 01/25/18 01/25/18 00:25 01:35 01:35 Creatine Kinase 1019 H CK-MB (CK-2) 7.49 H 4.12 Troponin I 0.018 < 0.012 NT-Pro-B Natriuret Pep 01/25/18 01/25/18 01/25/18 08:52 08:52 16:09 Creatine Kinase 924 H 806 H CK-MB (CK-2) 4.08 Troponin I < 0.012 NT-Pro-B Natriuret Pep 01/25/18 16:09 Creatine Kinase CK-MB (CK-2) 3.09 Troponin I < 0.012 NT-Pro-B Natriuret Pep Impressions: Renal Ultrasound 01/23/18 00:00 IMPRESSION: Normal but limited study. The left kidney was not well seen. Assessment & Plan - Diagnosis (1) Hypertensive emergency Is this a current diagnosis for this admission?: Yes (2) Acute kidney injury Is this a current diagnosis for this admission?: Yes (3) Rhabdomyolysis Qualifiers: Rhabdomyolysis type: non-traumatic Qualified Code(s): M62.82 - Rhabdomyolysis Is this a current diagnosis for this admission?: Yes (4) Schizophrenia Qualifiers: Schizophrenia type: unspecified Qualified Code(s): F20.9 - Schizophrenia, unspecified Is this a current diagnosis for this admission?: Yes - Plan Summary Plan Summary: Continue treatment
[2018-01-26 05:03] LABS: ABSOLUTE BASOPHILS # (AUTO) 0.1 10^3/uL (0.0-0.2); ABSOLUTE EOSINOPHILS # (AUTO) 0.1 10^3/uL (0.0-0.6); ABSOLUTE MONOCYTES (AUTO) 0.3 10^3/uL (0.1-1.4); ABSOLUTE NEUT (AUTO) 2.3 10^3/uL (1.7-8.2); BASOPHILS % (AUTO) 1.4 % (0-2); EOSINOPHILS % (AUTO) 2.1 % (0-6); HEMATOCRIT 25.7 % (37.9-51.0); HEMOGLOBIN 8.8 g/dL (13.5-17.0); LYMPHOCYTES % (AUTO) 41.8 % (13-45); MEAN CORPUSCULAR HEMOGLOBIN 30.6 pg (27.0-33.4); MEAN CORPUSCULAR HGB CONC 34.3 g/dL (32.0-36.0); MEAN CORPUSCULAR VOLUME 89 fl (80-97); MONOCYTES % (AUTO) 6.9 % (3-13); PLATELET COUNT 210 10^3/uL (150-450); RED BLOOD COUNT 2.88 10^6/uL (4.35-5.55); RED CELL DISTRIBUTION WIDTH 14.9 % (11.5-14.0); SEGMENTED NEUTROPHILS % (AUTO) 47.8 % (42-78); TOTAL CELLS COUNTED % (AUTO) 100 %; WHITE BLOOD COUNT 4.8 10^3/uL (4.0-10.5)
[2018-01-26 05:24] LABS: ANION GAP 9 (5-19); BLOOD UREA NITROGEN 23 mg/dL (7-20); CALCIUM 9.7 mg/dL (8.4-10.2); CARBON DIOXIDE 24 mmol/L (22-30); CHLORIDE 108 mmol/L (98-107); GLUCOSE 117 mg/dL (75-110); POTASSIUM 3.7 mmol/L (3.6-5.0); SODIUM 141.4 mmol/L (137-145)
[2018-01-26] MEDS: HYDRALAZINE HCL 50 MG TABLET PO SCH ×2 (05:41→13:44)
[2018-01-26] MEDS: BENZTROPINE MESYLATE 1 MG TABLET PO SCH (05:42)
[2018-01-26] MEDS: CLONIDINE HCL 0.2 MG TABLET PO SCH ×2 (05:43→13:43)
[2018-01-26] MEDS: HEPARIN SOD (PORCINE) 5,000 UNIT/ML 1 ML SYRINGE SUBCUT SCH ×2 (05:43→13:45)
[2018-01-26] MEDS: NORMAL SALINE 1000 ML 1,000 ML IV PRN (05:44)
[2018-01-26] MEDS: FLUPHENAZINE HCL 2.5 MG TABLET PO SCH (11:07)
[2018-01-26] MEDS: AMLODIPINE BESYLATE 10 MG TABLET PO SCH (11:08)
[2018-01-26 16:20] VITALS: BP 159/102
--- NOTE | 2018-01-26 18:32 | PDOC DISCHARGE SUMMARY ---
General - Admit/Disc Date/PCP Admission Date/Primary Care Provider: 01/23/18 09:37 DAYANARA MORRIS MD Discharge Date: 01/26/18 - Discharge Diagnosis (1) Hypertensive emergency Is this a current diagnosis for this admission?: Yes (2) Acute kidney injury Is this a current diagnosis for this admission?: Yes (3) Rhabdomyolysis Is this a current diagnosis for this admission?: Yes (4) Schizophrenia Is this a current diagnosis for this admission?: Yes - Additional Information Discharge Activity: Activity As Tolerated Prescriptions: Amlodipine Besylate [Norvasc 10 mg Tablet] 10 mg PO DAILY #90 tablet Aspirin [Aspirin EC] 81 mg PO DAILY #90 tablet. Benztropine Mesylate [Cogentin 1 mg Tablet] 0.5 mg PO Q12A #60 tablet Clonidine HCl [Catapres 0.2 mg Tablet] 0.2 mg PO Q8 #90 tablet Fluphenazine HCl [Prolixin 2.5 mg Tablet] 5 mg PO BID #60 tablet Glipizide [Glucotrol 5 mg Tablet] 5 mg PO DAILY #30 tablet Hydralazine HCl [Apresoline 50 mg Tablet] 50 mg PO Q8 #90 tablet Losartan/Hydrochlorothiazide [Hyzaar 100-12.5 Tablet] 1 tab PO DAILY #30 tablet Metformin HCl [Glucophage 500 mg Tablet] 1,000 mg PO BIDBS #60 tablet Home Medications: Amlodipine Besylate [Norvasc 10 mg Tablet] 10 mg PO DAILY #90 tablet 01/26/18 Aspirin [Aspirin EC] 81 mg PO DAILY #90 tablet. 01/26/18 Benztropine Mesylate [Cogentin 1 mg Tablet] 0.5 mg PO Q12A #60 tablet 01/26/18 Clonidine HCl [Catapres 0.2 mg Tablet] 0.2 mg PO Q8 #90 tablet 01/26/18 Fluphenazine HCl [Prolixin 2.5 mg Tablet] 5 mg PO BID #60 tablet 01/26/18 Glipizide [Glucotrol 5 mg Tablet] 5 mg PO DAILY #30 tablet 01/26/18 Hydralazine HCl [Apresoline 50 mg Tablet] 50 mg PO Q8 #90 tablet 01/26/18 Losartan/Hydrochlorothiazide [Hyzaar 100-12.5 Tablet] 1 tab PO DAILY #30 tablet 01/26/18 Metformin HCl [Glucophage 500 mg Tablet] 1,000 mg PO BIDBS #60 tablet 01/26/18 History of Present Illness History of Present Illness: ROSCOE MARINO is a 62 year old male, He has a history of schizophrenia, type 2 diabetes mellitus, he was transferred to the emergency room by EMS for evaluation of acute psychosis, he was hallucinating, talking to people, increased agitation with parkinsonian type movement. He was evaluated in the emergency room, the blood work revealed serum creatinine 2.79, CPK was elevated the blood pressure recorded was over 200 systolic. The serum creatinine that was done in the office on 01/01/2018 was 1.26 so clearly there is acute kidney injury in the setting of hypertensive emergency. It seems that patient's psychotropic drugs has not been filled, he has not seen the psychiatrist, he has appointment for follow-up in January next month. I could not obtain any meaningful history from this patient. Hospital Course Hospital Course: He Is admitted for the management of acute kidney injury in the setting of hypertensive emergency, rhabdomyolysis. He was treated with IV fluid normal saline with normalization of kidney function suggesting that the acute kidney injury is most likely prerenal acute kidney injury. The blood pressure was severely elevated partly due to non-adherence of medication intake, he did not require intravenous antihypertensive medication, he was started back on his regular home medication with subsequent normalization of blood pressure.He has schizophrenia, he manifested psychotic symptoms the etiology is partly due to nonadherence with his medication for the control of schizophrenia. I called the local retail pharmacy to find out about is psychiatric meds/psychotropic medication on the last time he was filled, he has not filled the Prolixin for quite a while, this may explain the reason for his abnormal behavior.He was started back on the Prolixin and he is well behaved ever since then. Physical Exam Vital Signs: Temp Pulse Resp BP Pulse Ox 97.3 F 71 14 159/102 H 100 01/26/18 16:18 01/26/18 16:18 01/26/18 16:18 01/26/18 16:18 01/26/18 16:18 Intake & Output 01/25/18 01/26/18 01/27/18 06:59 06:59 06:59 Intake Total 5421 3073 1355 Output Total 6934 857 6090 Balance 3771 5613 255 Weight 52.8 kg 51.1 kg General appearance: PRESENT: no acute distress Eye exam: PRESENT: PERRLA Respiratory exam: PRESENT: clear to auscultation eriberto Cardiovascular exam: PRESENT: +S1, +S2 GI/Abdominal exam: PRESENT: soft Neurological exam: PRESENT: alert, CN II-XII grossly intact Results Laboratory Results: 01/26/18 04:01 01/26/18 04:01 01/25/18 01/26/18 01/26/18 16:09 04:01 04:01 WBC 4.8 RBC 2.88 L Hgb 8.8 L Hct 25.7 L MCV 89 MCH 30.6 MCHC 34.3 RDW 14.9 H Plt Count 210 Seg Neutrophils % 47.8 Lymphocytes % 41.8 Monocytes % 6.9 Eosinophils % 2.1 Basophils % 1.4 Absolute Neutrophils 2.3 Absolute Lymphocytes 2.0 Absolute Monocytes 0.3 Absolute Eosinophils 0.1 Absolute Basophils 0.1 Sodium 141.4 Potassium 3.7 Chloride 108 H Carbon Dioxide 24 Anion Gap 9 BUN 23 H Creatinine 0.96 Est GFR ( Amer) > 60 Est GFR (Non-Af Amer) > 60 Glucose 117 H Calcium 9.7 Magnesium 1.3 L 01/23/18 01/23/18 01/23/18 13:10 13:10 13:10 Creatine Kinase 1571 H CK-MB (CK-2) 8.18 H Troponin I 0.020 NT-Pro-B Natriuret Pep 54 01/23/18 01/23/18 01/24/18 18:30 18:30 00:25 Creatine Kinase 1560 H 1597 H CK-MB (CK-2) 7.18 H Troponin I 0.012 NT-Pro-B Natriuret Pep 01/24/18 01/25/18 01/25/18 00:25 01:35 01:35 Creatine Kinase 1019 H CK-MB (CK-2) 7.49 H 4.12 Troponin I 0.018 < 0.012 NT-Pro-B Natriuret Pep 01/25/18 01/25/18 01/25/18 08:52 08:52 16:09 Creatine Kinase 924 H 806 H CK-MB (CK-2) 4.08 Troponin I < 0.012 NT-Pro-B Natriuret Pep 01/25/18 16:09 Creatine Kinase CK-MB (CK-2) 3.09 Troponin I < 0.012 NT-Pro-B Natriuret Pep Impressions: Renal Ultrasound 01/23/18 00:00 IMPRESSION: Normal but limited study. The left kidney was not well seen. Qualifiers - * PATIENT BEING DISCHARGED WITH ANY OF THE FOLLOWING DIAGNOSIS: No
== END 2018-01-26 18:48 | disposition home or self-care (01) | DRG 305 ==
LOC: ER 07:07 → EH 09:37 → 3N 12:33
PROVIDERS: ADMIT Internal Medicine; ATTEND Internal Medicine
DX: I16.1 Hypertensive emergency (principal); N17.9 Acute kidney failure, unspecified; M62.82 Rhabdomyolysis; F23 Brief psychotic disorder; R44.3 Hallucinations, unspecified; F20.89 Other schizophrenia; G25.9 Extrapyramidal and movement disorder, unspecified; I10 Essential (primary) hypertension; E11.9 Type 2 diabetes mellitus without complications; F32.9 Major depressive disorder, single episode, unspecified; E86.0 Dehydration; F17.210 Nicotine dependence, cigarettes, uncomplicated; Z79.82 Long term (current) use of aspirin; Z79.899 Other long term (current) drug therapy; Z85.46 Personal history of malignant neoplasm of prostate
CPT/HCPCS: 36415; 76770; 80048; 80053; 80307; 81001; 82150; 82550; 82553; 82962; 83036; 83690; 83735; 83874; 83880; 84439; 84443; 84484; 85025; 85027; 85610; 85730; 87086; 93005; 93010; 96374; 99285; J1200; J1644; J1815; J2060; J3475; J3490; J7030

== ENCOUNTER 2018-01-28 14:41 | Emergency (ER) | payer MEDICARE, MEDICAID ==
--- NOTE | 2018-01-28 15:16 | ER Document Report ---
ED General <JAMES BROOKS - Last Filed: 01/28/18 17:17> - General Mode of Arrival: Medic Information source: Patient, Relative - Discussed with patient's brother Diaz over the phone., [facility] Records TRAVEL OUTSIDE OF THE [place] IN LAST 30 DAYS: No - HPI Onset: Last week Onset/Duration: Gradual Quality of pain: No pain Severity: None Pain Level: Denies Associated symptoms: Shortness of breath. denies: Chest pain, Nonproductive cough, Productive cough, Diarrhea, Fever, Nausea, Vomiting Exacerbated by: Denies Relieved by: Denies Similar symptoms previously: Yes Recently seen / treated by doctor: Yes <STEFANIE PINK - Last Filed: 01/29/18 00:32> - General Chief Complaint: Shortness Of Breath Stated Complaint: SHORTNESS OF BREATH Time Seen by Provider: 01/28/18 14:56 Notes: This is a 62-year-old man with a history of schizophrenia, hypertension, diabetes who presents to the emergency room via EMS. The patient lives with his brother Diaz who is the one who called EMS. His brother states that the patient is "talking out of his mind", [place] bowling, wandering. EMS states that he was short of breath and that is the reason why they brought him to the ER, but, patient's brother states that there is been no significant shortness of breath. Patient is a longtime smoker and says he feels about how he normally feels. (STEFANIE PINK) - Related Data Allergies/Adverse Reactions: No Known Allergies Allergy (Verified 06/10/14 15:33) Past Medical History - General Information source: Patient - Social History Smoking Status: Current Every Day Smoker Cigarette use (# per day): Yes - 1 pack per day Chew tobacco use (# tins/day): No Frequency of alcohol use: None Drug Abuse: None Lives with: Family - She lives with his brother Family History: Reviewed & Not Pertinent Patient has suicidal ideation: No Patient has homicidal ideation: No - Past Medical History Cardiac Medical History: Reports: Hx Hypertension Endocrine Medical History: Reports: Hx Diabetes Mellitus Type 2 Renal/ Medical History: Denies: Hx Peritoneal Dialysis Malignancy Medical History: Reports Hx Prostate Cancer Psychiatric Medical History: Reports: Hx Depression, Hx Schizophrenia Past Surgical History: Denies: Hx Pacemaker <STEFANIE PINK - Last Filed: 01/29/18 00:32> Review of Systems - Review of Systems Constitutional: denies: Chills, Fever EENT: No symptoms reported Cardiovascular: No symptoms reported Respiratory: See HPI Gastrointestinal: No symptoms reported Genitourinary: No symptoms reported Male Genitourinary: No symptoms reported Musculoskeletal: No symptoms reported Skin: No symptoms reported Hematologic/Lymphatic: No symptoms reported Neurological/Psychological: See HPI <STEFANIE PINK - Last Filed: 01/29/18 00:32> Physical Exam <BROOKSJAMES - Last Filed: 01/28/18 17:17> <STEFANIE PINK - Last Filed: 01/29/18 00:32> - Vital signs Vitals: Pulse Ox 100 01/28/18 14:45 Notes: Physical exam: GENERAL: This is a 62-year-old man who is alert and difficult to comprehend. He is rambling. HEAD: Atraumatic, normocephalic. EYES: Pupils equal round and reactive to light, extraocular movements intact, sclera anicteric, conjunctiva are normal. ENT: TMs normal, nares patent, oropharynx clear without exudates. Moist mucous membranes. NECK: Normal range of motion, supple without obvious mass or JVD. LUNGS: Breath sounds clear to auscultation bilaterally and equal. No wheezes rales or rhonchi. HEART: Regular rate and rhythm without murmurs, rubs or gallops. ABDOMEN: Soft, normoactive bowel sounds. No tenderness to palpation. No guarding, no rebound. No masses appreciated. EXTREMITIES: Normal range of motion, no pitting or edema. No clubbing or cyanosis. NEUROLOGICAL: Cranial nerves II through XII grossly intact. He is moving all of his extremities. He is rambling and unfocused. PSYCH: Normal mood, normal affect. SKIN: Warm, Dry, normal turgor, no rashes or lesions noted. (STEFANIE PINK) Course - Laboratory Result Diagrams: 01/28/18 14:48 01/28/18 14:48 <SEVERO BROOKSOMI - Last Filed: 01/28/18 17:17> - Laboratory Result Diagrams: 01/28/18 14:48 01/28/18 14:48 - Diagnostic Test Radiology reviewed: Image reviewed, Reports reviewed - Chest x-ray shows no infiltrates or effusions <STEFANIE PINK - Last Filed: 01/29/18 00:32> - Re-evaluation Re-evalutation: 01/28/18 16:25 Patient has been evaluated by psychiatry and they feel that there is no indication for an IVC. The patient is not homicidal, suicidal and they feel it is mostly a social issue at this point. Should himself is very difficult to understand. The patient's brother Diaz has come into the emergency room and he confirms that the patient is at his baseline. As far as the issue of shortness of breath, I think the patient is at his baseline. I do not appreciate any wheezing. The chest x-ray is clear. We did give him a nebulizer treatment and he appears stable at this time. 01/28/18 16:26 01/28/18 19:52 Patient is doing well. His respiratory status is quite stable. He was given IV magnesium and oral potassium. I will send him home with supplementation. His EKG was sinus rhythm with a ventricular rate of 97 with a QT corrected of 432. The anemia that the patient has has been stable and there is no significant change from previous labs in the computer. 01/28/18 19:53 01/28/18 20:30 Note: Patient's blood pressure is noted to be elevated. He is asymptomatic at this time. He has not had his blood pressure medicine today. We will give him his clonidine and hydralazine that he normally takes at this time and his brother is taking him home and will give him the rest of his medicines when they get home. He is stable for discharge. (STEFANIE PINK) - Vital Signs Vital signs: Temp Pulse Resp BP Pulse Ox 98.1 F 17 218/84 H 100 01/28/18 20:28 01/28/18 20:28 01/28/18 20:28 01/28/18 20:28 - Laboratory Laboratory results interpreted by me: 01/28/18 01/28/18 01/28/18 14:48 14:48 15:38 RBC 2.81 L Hgb 8.6 L Hct 25.1 L RDW 15.4 H Potassium 3.1 L BUN 21 H Glucose 154 H Magnesium 1.2 L* Urine Glucose (UA) >=500 H Salicylates < 1.0 L Acetaminophen < 10 L Discharge <JAMES BROOKS - Last Filed: 01/28/18 17:17> <STEFANIE PINK - Last Filed: 01/29/18 00:32> - Discharge Clinical Impression: HYPOKALEMIA, Hypomagnesemia Condition: Stable Disposition: HOME, SELF-CARE Additional Instructions: You were seen in the ED and evaluated by the Medical and Behavioral Health Teams and determined to be appropriate for discharge at this time. You are scheduled an appointment with your outpatient provider on February 15, 2018. Please let them know about this visit to the hospital today. You were given resource information to contact DSS (Medicaid) to inquire about personal care services/usp services. You were also encouraged to contact your Mental Health provider for continued assistance. No medication recommendations. Counseling Services It has been recommended that you seek professional counseling to assist you with the stresses that you are experiencing. Most people at some time in their lives experience personal problems with which they need help. Pride and feeling that one can't be helped keep a lot of people from the benefits of counseling. These are telephone numbers to locate the counseling services most convenient to you: Department of social science analyst, [address] [place] [address], . As far as your electrolytes (potassium and magnesium), they were low today so he he received IV magnesium and oral potassium while you are in the ER. I do want you to take the supplementation as written and follow-up with Dr. Morris. Prescriptions: Magnesium Oxide [Mag-Oxide] 200 mg PO DAILY #14 tablet Potassium Chloride [Klor-Con M20] 20 meq PO BID #30 [email or web address] Referrals: DAYANARA MORRIS MD [Primary Care Provider] - Follow up in 3-5 days
[2018-01-28] MEDS ORDERED: IPRATROPIUM/ALBUTEROL 0.5-2.5 MG/3 ML AMPUL NEB ONE (15:17)
[2018-01-28 15:23] LABS: ABSOLUTE BASOPHILS # (AUTO) 0.1 10^3/uL (0.0-0.2); ABSOLUTE EOSINOPHILS # (AUTO) 0.1 10^3/uL (0.0-0.6); ABSOLUTE LYMPHOCYTES (AUTO) 1.8 10^3/uL (0.5-4.7); ABSOLUTE MONOCYTES (AUTO) 0.5 10^3/uL (0.1-1.4); ABSOLUTE NEUT (AUTO) 3.4 10^3/uL (1.7-8.2); BASOPHILS % (AUTO) 1.1 % (0-2); EOSINOPHILS % (AUTO) 1.2 % (0-6); HEMATOCRIT 25.1 % (37.9-51.0); HEMOGLOBIN 8.6 g/dL (13.5-17.0); LYMPHOCYTES % (AUTO) 30.7 % (13-45); MEAN CORPUSCULAR HEMOGLOBIN 30.7 pg (27.0-33.4); MEAN CORPUSCULAR HGB CONC 34.5 g/dL (32.0-36.0); MEAN CORPUSCULAR VOLUME 89 fl (80-97); MONOCYTES % (AUTO) 8.1 % (3-13); PLATELET COUNT 240 10^3/uL (150-450); RED BLOOD COUNT 2.81 10^6/uL (4.35-5.55); RED CELL DISTRIBUTION WIDTH 15.4 % (11.5-14.0); SEGMENTED NEUTROPHILS % (AUTO) 58.9 % (42-78); TOTAL CELLS COUNTED % (AUTO) 100 %; WHITE BLOOD COUNT 5.7 10^3/uL (4.0-10.5)
[2018-01-28 15:37] LABS: ALANINE AMINOTRANSFERASE 29 U/L (21-72); ALBUMIN 3.9 g/dL (3.5-5.0); ALKALINE PHOSPHATASE 51 U/L (38-126); ANION GAP 14 (5-19); ASPARTATE AMINO TRANSFERASE 30 U/L (17-59); BILIRUBIN,DIRECT 0.2 mg/dL (0.0-0.4); BILIRUBIN,TOTAL 0.2 mg/dL (0.2-1.3); BLOOD UREA NITROGEN 21 mg/dL (7-20); CALCIUM 10.2 mg/dL (8.4-10.2); CARBON DIOXIDE 23 mmol/L (22-30); CHLORIDE 105 mmol/L (98-107); GLUCOSE 154 mg/dL (75-110); POTASSIUM 3.1 mmol/L (3.6-5.0); SODIUM 142.3 mmol/L (137-145); TOTAL PROTEIN 6.8 g/dL (6.3-8.2)
--- NOTE | 2018-01-28 15:42 | RADIOLOGY REPORT (SQ) ---
EXAM DESCRIPTION: CHEST SINGLE VIEW COMPLETED DATE/TIME: 01/28/2018 3:25 pm REASON FOR STUDY: SOB COMPARISON: 12/05/2017 EXAM PARAMETERS: NUMBER OF VIEWS: One view. TECHNIQUE: Single frontal radiographic view of the chest acquired. RADIATION DOSE: NA LIMITATIONS: None. FINDINGS: LUNGS AND PLEURA: No acute opacities, masses or pneumothorax. No pleural effusion. MEDIASTINUM AND HILAR STRUCTURES: No masses. Contour normal. HEART AND VASCULAR STRUCTURES: Heart normal in size. Normal vasculature. BONES: No acute findings. Similar sclerosis of the anterior left 6th rib. HARDWARE: None in the chest. OTHER: No other significant finding. IMPRESSION: NO ACUTE RADIOGRAPHIC FINDING IN THE CHEST. Similar sclerosis of the anterior left 6th r ib. TECHNICAL DOCUMENTATION: JOB ID: [id number] [employer]- All Rights Reserved Reading location - IP/workstation name: [email or web address]
[2018-01-28 15:43] LABS: ACETAMINOPHEN < 10 ug/mL (10-30); ALCOHOL < 10 mg/dL (NONE DETECTED); SALICYLATE < 1.0 mg/dL (2.0-20.0)
[2018-01-28 16:17] LABS: APPEARANCE,URINE CLEAR; BILIRUBIN,URINE NEGATIVE (NEGATIVE); COLOR,URINE STRAW; GLUCOSE, URINE >=500 mg/dL (NEGATIVE); KETONES,URINE NEGATIVE (NEGATIVE); LEUKOCYTE ESTERASE,URINE NEGATIVE (NEGATIVE); NITRITE,URINE NEGATIVE (NEGATIVE); PROTEIN,URINE NEGATIVE (NEGATIVE); URINE SPECIFIC GRAVITY 1.007; UROBILINOGEN,URINE NEGATIVE mg/dL (<2.0)
[2018-01-28] MEDS ORDERED: POTASSIUM CHLORIDE 10 MEQ CAPSULE.ER PO ONE (16:23)
[2018-01-28 16:28] LABS: URINE AMPHETAMINES SCREEN NEGATIVE; URINE BARBITURATES SCREEN NEGATIVE; URINE BENZODIAZEPINES SCREEN NEGATIVE; URINE COCAINE SCREEN NEGATIVE; URINE MARIJUANA (THC) SCREEN NEGATIVE; URINE METHADONE SCREEN NEGATIVE; URINE PHENCYCLIDINE SCREEN NEGATIVE
[2018-01-28] MEDS: MAGNESIUM SULFATE/D5W 1 GM/100 ML RTUPB IV SCH ×3 (16:44→18:45)
[2018-01-28] MEDS ORDERED: CLONIDINE HCL 0.2 MG TABLET PO ONE (20:30)
[2018-01-28] MEDS ORDERED: HYDRALAZINE HCL 50 MG TABLET PO ONE (20:30)
[2018-01-28 20:45] VITALS: BP 218/84
--- NOTE | 2018-01-28 23:53 | EKG REPORT ---
SEVERITY:- ABNORMAL ECG - SINUS RHYTHM CONSIDER LEFT VENTRICULAR HYPERTROPHY : Confirmed by: Dhara Sandoval 28-Jan-2018 23:53:12
--- NOTE | 2018-01-29 18:59 | PSYCHOLOGICAL NOTE ---
Psych Note - Psych Note Psych Note: Met with patient and patient's brother in the ER. Patient is unable to talk coherently but did give me permission to talk with the brother. Brother states that when he got home from work he was greeted by the trust and estates paralegal regarding the patient. The patient had wandered to the neighbor's house and was trying to give his brothers mail away. Brother states that patient is "out of his mind" because he wanders away frequently. no SI/HI. Brother is the guardian for this patient. Clinician spoke with the patient's niece to share resource information on Medicaid, so that the family could inquire about in home services or personal care services to assist the brother with supervision. The niece stated that the patient sees Dr. Ramirez and has a mental health provider that he will see on January 15, 2018. She could not recall the name of the mental health provider. No medication recommendations. Diagnosis: Intellectual Disability 319.F79, Language Disorder 315.39 (F80.9) Impression/Plan: Patient is discharged from Behavioral Health at this time. Patient does not pose a threat to himself or to the public at large and does not meet criteria for IVC. Patient's brother and niece were given resource information to assist with in home care and personal care services.
== END 2018-01-28 20:42 | disposition home or self-care (01) ==
LOC: ER 14:41
DX: E87.6 Hypokalemia (principal); E83.42 Hypomagnesemia; R06.02 Shortness of breath; I10 Essential (primary) hypertension; Z79.899 Other long term (current) drug therapy; E11.9 Type 2 diabetes mellitus without complications; F17.210 Nicotine dependence, cigarettes, uncomplicated; Z85.46 Personal history of malignant neoplasm of prostate
CPT/HCPCS: 93005; 94640; 99285; 96365; 96366; 36415; 80307 ×4; 83735; 85025; 80053; 81001; 71045; 93010; A9270 ×4; J3475; J7620

== ENCOUNTER → 2018-06-08 | Outpatient (CLI) | payer MEDICARE, MEDICAID ==
[2018-06-08 15:02] LABS: ALANINE AMINOTRANSFERASE < 6 U/L (21-72); ALBUMIN 4.4 g/dL (3.5-5.0); ALKALINE PHOSPHATASE 85 U/L (38-126); ASPARTATE AMINO TRANSFERASE 15 U/L (17-59); BILIRUBIN,DIRECT 0.2 mg/dL (0.0-0.4); BILIRUBIN,TOTAL 0.3 mg/dL (0.2-1.3); TOTAL PROTEIN 7.1 g/dL (6.3-8.2)
== END ==
LOC: OD 13:38
PROVIDERS: ATTEND Radiology Radiation Oncology
DX: C61 Malignant neoplasm of prostate (principal)
CPT/HCPCS: 36415; 80076; 84153

== ENCOUNTER → 2018-08-24 | Outpatient (CLI) | payer MEDICAID, MEDICARE ==
--- NOTE | 2018-08-24 16:27 | RADIOLOGY REPORT (SQ) ---
EXAM DESCRIPTION: U/S RETROPERITON (RENAL/AORTA) COMPLETED DATE/TIME: 08/24/2018 4:16 pm REASON FOR STUDY: R94.4 ABNORMAL RESULTS OF KIDNEY FUNCTION STUDIES R94.4 ABNORMAL RESULTS OF KIDNE Y FUNCTION STUDIES COMPARISON: CT abdomen pelvis 12/05/2017 Bilateral renal ultrasound 01/23/2018 TECHNIQUE: Dynamic and static grayscale images acquired of the kidneys and bladder and recorded on P ACS. Additional selected color Doppler and spectral images recorded. LIMITATIONS: None. FINDINGS: RIGHT KIDNEY: Normal size 9.2 cm in length. Normal echogenicity. No solid or suspicious ma sses. No hydronephrosis. No calcifications. LEFT KIDNEY: Normal size, 9.8 cm in length. Normal echogenicity. No solid or suspicious masses. No h ydronephrosis. No calcifications. BLADDER: No masses. OTHER FINDINGS: No other significant finding. IMPRESSION: NORMAL RENAL AND BLADDER ULTRASOUND. TECHNICAL DOCUMENTATION: JOB ID: [id number] [employer]- All Rights Reserved Reading location - IP/workstation name: [email or web address]
== END ==
LOC: RAD 15:45
PROVIDERS: ATTEND Internal Medicine
DX: R94.4 Abnormal results of kidney function studies (principal)
CPT/HCPCS: 76770

== ENCOUNTER 2020-01-11 08:48 | Emergency (ER) | payer MEDICARE, MEDICAID ==
[2020-01-11 09:51] LABS: ABSOLUTE EOSINOPHILS # (AUTO) 0.1 10^3/uL (0.0-0.6); ABSOLUTE LYMPHOCYTES (AUTO) 1.7 10^3/uL (0.5-4.7); ABSOLUTE MONOCYTES (AUTO) 0.5 10^3/uL (0.1-1.4); ABSOLUTE NEUT (AUTO) 5.3 10^3/uL (1.7-8.2); BASOPHILS % (AUTO) 0.6 % (0-2); EOSINOPHILS % (AUTO) 1.6 % (0-6); HEMATOCRIT 35.6 % (37.9-51.0); HEMOGLOBIN 12.2 g/dL (13.5-17.0); LYMPHOCYTES % (AUTO) 22.5 % (13-45); MEAN CORPUSCULAR HEMOGLOBIN 31.9 pg (27.0-33.4); MEAN CORPUSCULAR HGB CONC 34.2 g/dL (32.0-36.0); MEAN CORPUSCULAR VOLUME 93 fl (80-97); MONOCYTES % (AUTO) 6.8 % (3-13); PLATELET COUNT 237 10^3/uL (150-450); RED BLOOD COUNT 3.82 10^6/uL (4.35-5.55); RED CELL DISTRIBUTION WIDTH 13.6 % (11.5-14.0); SEGMENTED NEUTROPHILS % (AUTO) 68.5 % (42-78); TOTAL CELLS COUNTED % (AUTO) 100 %; WHITE BLOOD COUNT 7.7 10^3/uL (4.0-10.5)
[2020-01-11 09:54] LABS: ALBUMIN 4.5 g/dL (3.5-5.0); ALKALINE PHOSPHATASE 72 U/L (38-126); ANION GAP 7 (5-19); ASPARTATE AMINO TRANSFERASE 23 U/L (17-59); BILIRUBIN,TOTAL 0.3 mg/dL (0.2-1.3); BLOOD UREA NITROGEN 24 mg/dL (7-20); CALCIUM 10.3 mg/dL (8.4-10.2); CARBON DIOXIDE 28 mmol/L (22-30); CHLORIDE 100 mmol/L (98-107); CREATINE KINASE 157 U/L (55-170); GLUCOSE 222 mg/dL (75-110); POTASSIUM 4.4 mmol/L (3.6-5.0); TOTAL PROTEIN 7.6 g/dL (6.3-8.2)
[2020-01-11 10:05] LABS: CREATINE KINASE MB 1.32 ng/mL (<4.55)
[2020-01-11 10:07] LABS: TROPONIN I < 0.012 ng/mL
--- NOTE | 2020-01-11 10:28 | ER Document Report ---
ED Cardiac - General Chief Complaint: Chest Pain Stated Complaint: CHEST DISCOMFORT Time Seen by Provider: 01/11/20 09:31 Primary Care Provider: DAYANARA MORRIS MD [Primary Care Provider] - Follow up in 3-5 days Notes: Patient is a 64-year-old male who came into the emergency department via EMS with a complaint of chest pain when he woke up. He was given aspirin via EMS. When I evaluated the patient, the patient stated that he did not have any chest pain. He states that he had midline abdominal pain. He states that it is just in that 1 spot. Patient has a history of hypertension and diabetes. TRAVEL OUTSIDE OF THE [place] IN LAST 30 DAYS: No - Related Data Allergies/Adverse Reactions: No Known Allergies Allergy (Verified 01/11/20 09:05) Past Medical History - General Information source: Patient - Social History Smoking Status: Current Every Day Smoker Family History: Reviewed & Not Pertinent Patient has homicidal ideation: No - Past Medical History Cardiac Medical History: Reports: Hx Hypertension Endocrine Medical History: Reports: Hx Diabetes Mellitus Type 2 Renal/ Medical History: Denies: Hx Peritoneal Dialysis Malignancy Medical History: Reports Hx Prostate Cancer Psychiatric Medical History: Reports: Hx Depression, Hx Schizophrenia Past Surgical History: Denies: Hx Pacemaker Review of Systems - Review of Systems Notes: REVIEW OF SYSTEMS: CONSTITUTIONAL : Denies recent illness. Denies recent unintentional weight loss. Denies fever, chills, or sweats. EENT: Denies eye, ear, throat, or mouth pain, discharge, or symptoms. Denies nasal or sinus congestion. CARDIOVASCULAR: Denies chest pain. RESPIRATORY: Denies shortness of breath, cough, congestion, difficulty breathing, or wheezing. GASTROINTESTINAL: See HPI. GENITOURINARY: Denies difficulty urinating, burning, blood in urine, urgency or frequency. MUSCULOSKELETAL: Denies neck and back pain. Denies joint pain or swelling. SKIN: Denies rash, itchiness, or lesions HEMATOLOGIC : Denies easy bruising or bleeding. LYMPHATIC: Denies swollen, painful, enlarged glands. NEUROLOGICAL: Denies no numbness or tingling denies weakness. Denies headache. Denies altered mental status. Denies alteration in speech. PSYCHIATRIC: Denies stress, anxiety, alteration in sleep patterns, or depression. All other systems reviewed and negative. Physical Exam - Vital signs Vitals: Temp Pulse Resp BP Pulse Ox 98.0 F 91 18 161/104 H 100 01/11/20 08:52 01/11/20 08:52 01/11/20 08:52 01/11/20 08:52 01/11/20 08:52 - Notes Notes: PHYSICAL EXAMINATION: GENERAL: Appears well, healthy, well-nourished, no acute distress. HEAD: Normocephalic, atraumatic. EYES: PERRL, conjunctiva normal, all extraocular movements intact, sclera non icteric ENT: Moist mucous membranes. NECK: Supple, no noticeable swelling, redness, rash. Normal range of motion. LUNGS: Equal breath sounds bilaterally and clear to auscultation. No wheezes ra les or rhonchi. CARDIOVASCULAR: S1-S2, regular rate, regular rhythm. Radial pulses 2+, normal. ABDOMEN: Normoactive bowel sounds. Soft, moderately tender generalized abdomen, mild guarding, no rebound tenderness, and no masses palpated. EXTREMITIES: Normal strength and range of motion, no pitting or edema. No cyanosis. NEUROLOGICAL: Moves all extremities upon command. Strength 5/5 in all extremities. PSYCH: Normal mood, normal affect. SKIN: Warm, dry. No rash, lesions, ulcerations noted. Normal skin turgor. Course - Re-evaluation Re-evalutation: 01/11/20 14:28 Hematology is unremarkable. Hemoglobin and hematocrit are also unremarkable. Chemistries are normal, other than a glucose of 222. Troponin was negative x2. Lipase was normal. Urinalysis shows glucose in his urine, but the patient is diabetic. CT of the abdomen pelvis did not show any acute findings. No mesenteric ischemia noted. Not quite sure why the patient has abdominal pain, but discussed findings with the patient. Gallbladder and appendix were normal. Follow-up precautions were given. Verbal discharge instructions were given to t he patient. They verbalized understanding. They are stable for discharge. - Vital Signs Vital signs: Temp Pulse Resp BP Pulse Ox 98.3 F 91 18 187/97 H 100 01/11/20 12:36 01/11/20 08:52 01/11/20 12:36 01/11/20 12:36 01/11/20 12:36 - Laboratory Result Diagrams: 01/11/20 09:15 01/11/20 09:15 Laboratory results interpreted by me: 01/11/20 01/11/20 01/11/20 09:15 09:15 10:25 RBC 3.82 L Hgb 12.2 L Hct 35.6 L Sodium 135.4 L BUN 24 H Glucose 222 H Calcium 10.3 H Urine Glucose (UA) >=500 H - EKG Interpretation by Me Additional EKG results interpreted by me: 01/11/20 Sinus rhythm. Rate 91. MI 180; QRS 84; QT 360; QTc 443. No ST elevations or depressions noted. Discharge - Discharge Clinical Impression: Abdominal pain Qualifiers: Abdominal location: generalized Qualified Code(s): R10.84 - Generalized abdominal pain Chest pain Qualifiers: Chest pain type: unspecified Qualified Code(s): R07.9 - Chest pain, unspecified Condition: Stable Disposition: HOME, SELF-CARE Additional Instructions: You have been seen in the Emergency Department (ED) for abdominal pain. Your evaluation did not identify a clear cause of your symptoms but was generally reassuring. Please follow up with your doctor as soon as possible regarding today's emergent visit and the symptoms that are bothering you. Return to the ED if your abdominal pain worsens or fails to improve, you develop bloody vomiting, bloody diarrhea, you are unable to tolerate fluids due to vomiting, fever greater than 101, or other symptoms that concern you. You were also seen for chest pain that you had earlier. Your labs were normal. Please follow-up with your primary care provider and follow-up with cardiology. Referrals: DAYANARA MORRIS MD [Primary Care Provider] - Follow up in 3-5 days
[2020-01-11 10:45] LABS: APPEARANCE,URINE CLEAR; BILIRUBIN,URINE NEGATIVE (NEGATIVE); COLOR,URINE STRAW; GLUCOSE, URINE >=500 mg/dL (NEGATIVE); KETONES,URINE NEGATIVE (NEGATIVE); LEUKOCYTE ESTERASE,URINE NEGATIVE (NEGATIVE); NITRITE,URINE NEGATIVE (NEGATIVE); PROTEIN,URINE NEGATIVE (NEGATIVE); URINE SPECIFIC GRAVITY 1.005; UROBILINOGEN,URINE NEGATIVE mg/dL (<2.0)
--- NOTE | 2020-01-11 11:56 | EKG REPORT ---
SEVERITY:- NORMAL ECG - SINUS RHYTHM : Confirmed by: Tony Larios MD 11-Jan-2020 11:55:20
[2020-01-11] MEDS ORDERED: CLONIDINE HCL 0.2 MG TABLET PO ONE (12:37)
[2020-01-11] MEDS ORDERED: HYDRALAZINE HCL 50 MG TABLET PO ONE (12:38)
[2020-01-11 12:46] VITALS: BP 187/97
--- NOTE | 2020-01-11 12:47 | RADIOLOGY REPORT (SQ) ---
EXAM DESCRIPTION: CT ABD/PELVIS WITH IV ONLY IMAGES COMPLETED DATE/TIME: 01/11/2020 12:33 pm REASON FOR STUDY: abdominal pain COMPARISON: 12/05/2017 TECHNIQUE: CT scan of the abdomen and pelvis performed using helical scanning technique with dynamic intravenous contrast injection. No oral contrast. Images reviewed with lung, soft tissue, and bone windows. Reconstructed coronal and sagittal MPR images reviewed. Delayed images for evaluation of the urinary system also acquired. All images stored on PACS. All CT scanners at this facility use dose modulation, iterative reconstruction, and/or weight based d osing when appropriate to reduce radiation dose to as low as reasonably achievable (ALARA). [facility]: Dose Right [facility]: CareDose [facility]: Dose Right [facility]: Teradose 4D [facility]: Ship & Duck CONTRAST TYPE AND DOSE: contrast/concentration: Isovue 350.00 mmol/ml; Total Contrast Delivered: 77. 0 ml; Total Saline Delivered: 67.0 ml RENAL FUNCTION: GFR > 60. RADIATION DOSE: CT Rad equipment meets quality standard of care and radiation dose reduction techniq ues were employed. CTDIvol: 5.5 - 7.5 mGy. DLP: 629 mGy-cm.. LIMITATIONS: None. FINDINGS: LOWER CHEST: No significant findings. No nodules or infiltrates. LIVER: Normal size. No masses. No dilated ducts. SPLEEN: Normal size. No focal lesions. PANCREAS: No masses. No significant calcifications. No adjacent inflammation or peripancreatic fluid collections. Pancreatic duct not dilated. GALLBLADDER: No identified stones by CT criteria. No inflammatory changes to suggest cholecystitis. ADRENAL GLANDS: No significant masses or asymmetry. RIGHT KIDNEY AND URETER: No solid masses. No significant calcifications. No hydronephrosis or hyd roureter. LEFT KIDNEY AND URETER: No solid masses. No significant calcifications. No hydronephrosis or hydr oureter. AORTA AND VESSELS: No aneurysm. No dissection. Renal arteries, SMA, celiac without stenosis. RETROPERITONEUM: No retroperitoneal adenopathy, hemorrhage or masses. BOWEL AND PERITONEAL CAVITY: No masses or inflammatory changes. No free fluid or peritoneal masses. APPENDIX: Normal. PELVIS: No mass. No free fluid. Normal bladder. ABDOMINAL WALL: No masses. No hernias. BONES: No significant or acute findings. OTHER: No other significant finding. IMPRESSION: No acute findings. No explanation for pain. TECHNICAL DOCUMENTATION: JOB ID: [id number] Quality ID # [id number]: Final reports with documentation of one or more dose reduction techniques (e.g., Au tomated exposure control, adjustment of the mA and/or kV according to patient size, use of iterative reconstruction technique) 2010 [employer] All Rights Reserved Reading location - IP/workstation name: [email or web address]
== END 2020-01-11 15:34 | disposition home or self-care (01) ==
LOC: ER 08:48
DX: R10.84 Generalized abdominal pain (principal); R07.9 Chest pain, unspecified; R10.9 Unspecified abdominal pain; I10 Essential (primary) hypertension; E11.9 Type 2 diabetes mellitus without complications; F17.200 Nicotine dependence, unspecified, uncomplicated
CPT/HCPCS: 93005; 99285; 36415; 82553; 82550; 83690; 85025; 80053; 81001; 84484; 74177; 93010; A9270 ×2

== ENCOUNTER 2020-01-15 09:13 | Emergency (ER) | payer MEDICARE, MEDICAID ==
[2020-01-15] MEDS ORDERED: NORMAL SALINE 1000 ML 1,000 ML IV ONE (09:41)
--- NOTE | 2020-01-15 09:45 | ER Document Report ---
ED General - General Stated Complaint: LEG NUMBNESS Time Seen by Provider: 01/15/20 09:19 Primary Care Provider: DAYANARA MORRIS MD [Primary Care Provider] - Follow up as needed Information source: Patient Notes: HPI: Patient is a 64-year-old male with past medical history as recorded including schizophrenia, diabetes, prostate cancer, chronic kidney disease [facility] given that the patient told the staff and broken words that he was having pain "all over". They state no fevers, vomiting, diarrhea, recent falls, focal weakness or numbness. They did smell a foul smelling urine. History of urinary tract infection. Patient did not want a walk to breakfast. EMS states that the patient did walk to the stretcher. Accu-Chek is 146. On exam patient answers questions with one-word answers of yes and no. When I asked him about pain he denies this. He denies any shortness of breath, abdominal pain, or pain to the extremities. detention states that the patient normally answers and only yes or no answers. ROS: See HPI All other review of systems reviewed and otherwise negative Reviewed vital signs and nursing note as charted by RN. PHYSICAL EXAM: CONSTITUTIONAL: Alert and oriented and responds stating only yes or no. Well- appearing; well-nourished HEAD: Normocephalic; atraumatic EYES: PERRL; Conjunctivae clear, sclerae non-icteric ENT: Normal nose; no rhinorrhea; moist mucous membranes; pharynx without lesions noted NECK: Supple without meningismus; non-tender; no cervical lymphadenopathy, no masses CARD: Regular rate and rhythm; no murmurs; symmetric distal pulses RESP: Normal chest excursion without splinting or tachypnea; breath sounds clear and equal bilaterally; no wheezes, no rhonchi, no rales ABD/GI: Normal bowel sounds; non-distended; soft, non-tender : Patient has very foul-smelling urine. His underwear looks extraordinarily dirty. No obvious penile lesions or testicular pain or swelling BACK: The back appears normal and is non-tender to palpation EXT: Normal ROM in all joints; non-tender to palpation; no edema SKIN: No acute lesions noted NEURO: CN 2-12 intact; 5/5 bilateral upper and lower extremity strength with sensation intact to light touch with full flexion of bilateral legs and hips PSYCH: The patient's mood and manner are appropriate. Grooming and personal hygiene are appropriate. TRAVEL OUTSIDE OF THE [place] IN LAST 30 DAYS: No - Related Data Allergies/Adverse Reactions: No Known Allergies Allergy (Verified 01/11/20 09:05) Past Medical History - Social History Smoking Status: Unknown if Ever Smoked Family History: Reviewed & Not Pertinent - Past Medical History Cardiac Medical History: Reports: Hx Hypertension Endocrine Medical History: Reports: Hx Diabetes Mellitus Type 2 Renal/ Medical History: Denies: Hx Peritoneal Dialysis Malignancy Medical History: Reports Hx Prostate Cancer Psychiatric Medical History: Reports: Hx Depression, Hx Schizophrenia Past Surgical History: Denies: Hx Pacemaker Physical Exam - Vital signs Vitals: Temp 98 F 01/15/20 09:13 Course - Re-evaluation Re-evalutation: 01/15/20 09:45 Given the above history and physical with nursing fci report, we will obtain basic labs, catheterized urine analysis, and provide a liter of fluid. Vital signs are stable and the patient is afebrile. 01/15/20 10:44 Labs as recorded. No obvious urinary tract infection. We did speak to the tyron ent's daughter that states that the patient is currently seeing the oncologist secondary to metastases from his prostate to his bones. She states that the patient normally has some leg pain. Patient still has no focal deficits to all 4 extremities. No lower extremity edema. Vital signs are stable. We will touch base with the patient's oncologist. We will make sure that the patient is able to ambulate prior to discharge. Patient will be discharged with strict return precautions. - Vital Signs Vital signs: Temp Pulse Resp BP Pulse Ox 98 F 93 37 H 157/77 H 100 01/15/20 09:48 01/15/20 09:48 01/15/20 10:01 01/15/20 10:01 01/15/20 10:01 - Laboratory Result Diagrams: 01/15/20 09:20 01/15/20 09:20 Laboratory results interpreted by me: 01/15/20 01/15/20 01/15/20 09:20 09:20 09:39 RBC 3.92 L Hgb 12.4 L Hct 36.6 L Sodium 135.4 L BUN 29 H Creatinine 1.34 H Est GFR (MDRD) Non-Af 54 L Glucose 173 H Calcium 10.3 H Urine Glucose (UA) 50 H Discharge - Discharge Clinical Impression: Total body pain, Prostate cancer metastatic to bone Condition: Fair Disposition: HOME, SELF-CARE Additional Instructions: Come back immediately with any fevers, vomiting, change in mental status, swelling of the extremities, or any other acute problems. Please make sure that the patient continues to follow-up with the primary care physician and guest experience specialist. Referrals: DAYANARA MORRIS MD [Primary Care Provider] - Follow up as needed
[2020-01-15 09:47] LABS: ABSOLUTE EOSINOPHILS # (AUTO) 0.2 10^3/uL (0.0-0.6); ABSOLUTE LYMPHOCYTES (AUTO) 1.9 10^3/uL (0.5-4.7); ABSOLUTE MONOCYTES (AUTO) 0.5 10^3/uL (0.1-1.4); BASOPHILS % (AUTO) 0.6 % (0-2); EOSINOPHILS % (AUTO) 2.3 % (0-6); HEMATOCRIT 36.6 % (37.9-51.0); HEMOGLOBIN 12.4 g/dL (13.5-17.0); LYMPHOCYTES % (AUTO) 24.8 % (13-45); MEAN CORPUSCULAR HEMOGLOBIN 31.7 pg (27.0-33.4); MEAN CORPUSCULAR HGB CONC 33.9 g/dL (32.0-36.0); MEAN CORPUSCULAR VOLUME 94 fl (80-97); MONOCYTES % (AUTO) 6.8 % (3-13); PLATELET COUNT 251 10^3/uL (150-450); RED BLOOD COUNT 3.92 10^6/uL (4.35-5.55); RED CELL DISTRIBUTION WIDTH 13.3 % (11.5-14.0); SEGMENTED NEUTROPHILS % (AUTO) 65.5 % (42-78); TOTAL CELLS COUNTED % (AUTO) 100 %; WHITE BLOOD COUNT 7.7 10^3/uL (4.0-10.5)
[2020-01-15 09:52] LABS: APPEARANCE,URINE CLEAR; BILIRUBIN,URINE NEGATIVE (NEGATIVE); COLOR,URINE STRAW; GLUCOSE, URINE 50 mg/dL (NEGATIVE); KETONES,URINE NEGATIVE (NEGATIVE); LEUKOCYTE ESTERASE,URINE NEGATIVE (NEGATIVE); NITRITE,URINE NEGATIVE (NEGATIVE); PROTEIN,URINE NEGATIVE (NEGATIVE); URINE SPECIFIC GRAVITY 1.013; UROBILINOGEN,URINE NEGATIVE mg/dL (<2.0)
[2020-01-15 10:04] LABS: ALBUMIN 4.3 g/dL (3.5-5.0); ALKALINE PHOSPHATASE 74 U/L (38-126); ANION GAP 10 (5-19); ASPARTATE AMINO TRANSFERASE 19 U/L (17-59); BILIRUBIN,TOTAL 0.4 mg/dL (0.2-1.3); BLOOD UREA NITROGEN 29 mg/dL (7-20); CALCIUM 10.3 mg/dL (8.4-10.2); CARBON DIOXIDE 24 mmol/L (22-30); CHLORIDE 101 mmol/L (98-107); CREATINE KINASE 100 U/L (55-170); GLUCOSE 173 mg/dL (75-110); POTASSIUM 4.8 mmol/L (3.6-5.0); TOTAL PROTEIN 7.4 g/dL (6.3-8.2)
[2020-01-15 10:25] LABS: CREATINE KINASE MB 0.84 ng/mL (<4.55)
[2020-01-15 10:27] LABS: TROPONIN I < 0.012 ng/mL
[2020-01-15 12:11] VITALS: BP 157/82
--- NOTE | 2020-01-16 09:31 | EKG REPORT ---
SEVERITY:- NORMAL ECG - SINUS RHYTHM : Confirmed by: Dhara Sandoval 16-Jan-2020 09:31:08
== END 2020-01-15 13:55 | disposition home or self-care (01) ==
LOC: ER 09:13
DX: R52 Pain, unspecified (principal); C61 Malignant neoplasm of prostate; C79.51 Secondary malignant neoplasm of bone; R39.89 Other symptoms and signs involving the genitourinary system; E11.9 Type 2 diabetes mellitus without complications; I10 Essential (primary) hypertension; Z87.440 Personal history of urinary (tract) infections
CPT/HCPCS: 93005; 99285; 96360; 96361; 36415; 82553; 82550; 85025; 80053; 81001; 84484; 93010; J7030